=== PATIENT | female | born 1950 | race Caucasian/White ===

== ENCOUNTER → 2016-10-23 | Day surgery (SDC) | payer OTHER, MEDICARE ==
[~2016-10-23] VITALS: Ht 149.9 cm; Wt 95.3 kg
[~2016-10-23] MED LIST: ACIDOPHILUS1 CAP PO; ALLOPURINOL300 MG PO; AMITRIPTYLINE75 MG PO; BACTRIM DS 8001 TAB PO; CIPRO 500MG TA500 MG PO; COLACE100 M1 PO; CYCLOBENZAPRINE10 MG PO; DIFLUCAN200 MG PO; DULOXETINE HCL30 MG PO; FUROSEMIDE40 M1 PO; FUROSEMIDE40 MG PO; GLUCOPHAGE1000 MG PO; HYDROCODONE/ACE1 TA1 PO; LASIX20 MG PO; LASIX40 MG PO; LEADER MELATONIN5 MG PO; LEVOTHYROXIN0.112 MG PO; LEVOTHYROXINE125 MCG PO; METFORMIN HCL1000 M1 PO; NEURONTIN300 MG PO; NEXIUM 40MG40 MG PO; NITROFURANTOIN100 MG PO; NORVASC 5MG TAB5 MG PO; PERCOCET 325 MG1 TA2 PO; SAVELLA25 MG PO; SUPRAX400 M2 PO; VICODIN5-300 PO; VITAMIN B121000 MC2 PO; VITAMIN D31000 IU PO; ZOCOR 40MG TAB40 MG PO
--- NOTE | 2016-10-23 12:32 | Operative Report ---
Operative/Inv Procedure Report Surgery Date: 10/23/16 Name of Procedure: Release right sided carpal tunnel Pre-Operative Diagnosis: carpal Tunnel syndrome Post-Operative Diagnosis: Same Estimated Blood Loss: scant Surgeon/Airframe Design Engineer: GISELLA PATIÑO MD Anesthesia: moderate sedation Operative/Procedure Note Note: Patient was counseled extensively regarding the procedure the alternatives risks and expected outcomes as relates to her request for surgical intervention to treat symptomatically right-sided carpal tunnel syndrome. We talked about his being given or implied in regards to recovery. We talked about the risks which include infection bleeding pain "sensitive scarring of the fingers are numb skin of the palm. Once agreed informed consent was signed. She was brought to the operating room placed supine on the table. Intravenous sedation outpouching of the right hand was prepped and draped in usual sterile fashion. Tourniquet was placed and inflated. A palmar incision was made through the skin subcutaneous tissue and palmar fascia. Transverse carpal ligament was opened and explored under direct vision. No other pathology seen. Wound was irrigated closed and splinted
== END ==
LOC: STS 10-03 07:00
DX: G56.01 Carpal tunnel syndrome, right upper limb (principal); E78.5 Hyperlipidemia, unspecified; I10 Essential (primary) hypertension; E03.9 Hypothyroidism, unspecified; E11.9 Type 2 diabetes mellitus without complications; Z79.84 Long term (current) use of oral hypoglycemic drugs; Z86.14 Personal history of Methicillin resistant Staphylococcus aureus infection
CPT/HCPCS: J2250

== ENCOUNTER 2016-12-07 08:33 | Emergency (ER) | payer OTHER ==
[~2016-12-07 08:33] MED LIST changes: -COLACE100 M1 PO; -METFORMIN HCL1000 M1 PO; -SUPRAX400 M2 PO
--- NOTE | 2016-12-07 08:51 | ED GI/GU/ABDOMINAL COMPLAINT ---
History of Present Illness General Chief Complaint: Abdominal Pain/Flank Pain Stated Complaint: LUMP ON L SIDE AND PAINFUL/FREQUENT URINATION Source: patient, family, old records Exam Limitations: no limitations Vital Signs & Intake/Output Vital Signs & Intake/Output Vital Signs Date Time Temp Pulse Resp B/P B/P Pulse O2 O2 Flow FiO2 Mean Ox Delivery Rate 12/07 0849 97.4 104 22 138/67 98 Room Air Allergies Coded Allergies: Iodinated Contrast Media - Oral and (IODINATED CONTRAST MEDIA - IV DYE) (RASH ) Penicillins (UNKNOWN 09/14/15) Uncoded Allergies: COBAN (Intermediate, RASH 10/20/16) MAURICIO (UNKNOWN 11/05/12) Reconcile Medications Cefixime (Suprax) 400 MG CAPSULE 1 CAP PO DAILY URINE INFECTION Docusate Sodium (Colace) 100 MG CAPSULE 1 CAP PO BID CONSTIPATION Duloxetine HCl 30 MG CAPSULE.DR 1 CAP PO DAILY FIBROMYALGIA (Reported) Furosemide 40 MG TABLET 1.5 TAB PO DAILY EDEMA (Reported) Gabapentin (Neurontin) 300 MG CAP 1 CAP PO TID pain (Reported) HYDROCODONE/ACETAMINOPHEN (Hydrocodon-Acetaminophen 5-325) 5 MG-325 MG TABLET 1 TAB PO AT BEDTIME pain (Reported) Levothyroxine Sodium 125 MCG TABLET 1 TAB PO DAILY HYPOTHYROID (Reported) Melatonin 5 MG TABLET 1 TAB PO QPM SLEEP (Reported) Metformin HCl 1,000 MG TABLET 1 TAB PO BID DM (Reported) Metformin Hydrochloride (Glucophage) 1,000 MG TAB 1 TAB PO BID DIABETES ( Reported) Simvastatin (Zocor 40MG Tab) 40 MG TABLET 1 TAB PO QPM CHOLESTEROL (Reported) Triage Note: PER PT I HAVE AUTI, X 4 DAYS, I AM INCONTINENT AT BASELINE BUT ITS WORSE ALSO LUMP IN MY L SIDE, YOU CAN FEEL IT WHEN I STAND UP. PT HAD AN OUTPT CT THEN CAME TO REGISTER TO BE SEEN Triage Nurses Notes Reviewed? yes ? N Is pt currently ? No HPI: Patient had an outpatient CAT scan performed today to evaluate kidney stones. This was ordered by her urologist. After the CAT scan the patient decides check into the emergency department for a lump that she has had on the left side for the past week. She has noticed a lump to be there constantly. There are no aggravating or mitigating factors. She describes a pressure sensation around the lump. There is no radiation. She rates it as a 5 out of 10. Patient also states she has been constipated for the past 5 days. There is no nausea or vomiting. Patient decided to get both of those evaluated. She is also complaining of urinary frequency and dysuria. The symptoms have been going on for the past 2 days. No fevers or chills. Similar symptoms multiple times in the past when she's had urinary tract infections. Past History Travel History Traveled to [place] past 21 day No Medical History Any Pertinent Medical History? 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 Hepatic: NONE Renal: nephrolithiasis, bladder tumor s/p resection Musculoskeletal: fibromyalgia, gout, osteoarthritis, osteoporosis Psychiatric: NONE Endocrine: diabetes, hyperparathyroidism, hypothyroidism, obesity, W/ RESECTION Blood Disorders: NONE Cancer(s): basal cell carcinoma, melanoma DRUPAL WEB DEVELOPER/Reproductive: NONE Other Medical Hx: Fibromyalgia History of MRSA: Yes History of VRE: No History of CDIFF: No Surgical History Surgical History: 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 No Review of Systems Review of Systems Constitutional: Reports: no symptoms. EENTM: Reports: no symptoms. Respiratory: Reports: no symptoms. Cardiovascular: Reports: no symptoms. GI: Reports: see HPI, abdominal pain, constipation. Genitourinary: Reports: no symptoms. Musculoskeletal: Reports: no symptoms. Skin: Reports: no symptoms. Neurological/Psychological: Reports: no symptoms. Hematologic/Endocrine: Reports: no symptoms. Immunologic/Allergic: Reports: no symptoms. All Other Systems: Reviewed and Negative Physical Exam Physical Exam General Appearance: well developed/nourished, alert, awake Head: atraumatic, normal appearance Eyes: Bilateral: PERRL, EOMI. Ears, Nose, Throat, Mouth: hearing grossly normal, moist mucous membrane Neck: normal inspection, supple, full range of motion Respiratory: normal breath sounds, chest non-tender, no respiratory distress, lungs clear Cardiovascular: regular rate/rhythm, normal peripheral pulses Gastrointestinal: normal bowel sounds, soft, non-tender, no organomegaly Back: normal inspection, normal range of motion Extremities: normal range of motion Neurologic/Psych: no motor/sensory deficits, awake, alert, oriented x 3, normal mood/affect Skin: intact, normal color, warm/dry Core Measures ACS in differential dx? No Severe Sepsis Present: No Septic Shock Present: No Progress Differential Diagnosis: bowel obstruction, hernia, ischemic bowel, inflamm bowel dis, kidney stone, SBO, UTI/pyelo Plan of Care: Orders Procedure Date/time Status Add-on Test (ER Only) 12/07 1032 Active Straight Cath 12/07 0850 Active URINALYSIS 12/07 0850 Complete LIPASE 12/07 0850 Complete COMPREHENSIVE METABOLIC PANEL 12/07 0850 Complete CBC WITHOUT DIFFERENTIAL 12/07 0850 Complete AMYLASE 12/07 0850 Complete Laboratory Tests 12/07/16 0945: Anion Gap 16, Estimated GFR 55 L, BUN/Creatinine Ratio 28.0 H, Glucose 162 H, Calcium 8.9, Total Bilirubin 0.3, AST 21, ALT 27, Alkaline Phosphatase 47, Total Protein 6.6, Albumin 3.7, Globulin 2.9, Albumin/Globulin Ratio 1.3, Amylase 43, Lipase 39, CBC w Diff NO MAN DIFF REQ, RBC 2.80 L, MCV 102.9 H, MCH 33.6 H, RDW 16.0 H, MPV 9.0, Gran % 72.3, Lymphocytes % 18.7 L, Monocytes % 7.0, Eosinophils % 1.6, Basophils % 0.4, Absolute Granulocytes 5.0, Absolute Lymphocytes 1.3, Absolute Monocytes 0.5, Absolute Eosinophils 0.1, Absolute Basophils 0, PUBS MCHC 32.6 L 12/07/16 0900: Urinalysis LIGHT H, Urine Color YEL, Urine Clarity HAZY H, Urine pH 6.0, Ur Specific [place] 1.010, Urine Protein 30 H, Urine Ketones NEG, Urine Nitrite POS H, Urine Bilirubin NEG, Urine Urobilinogen 0.2, Ur Leukocyte Esterase LARGE H, Ur Microscopic SEDIMENT EXAMINED, Urine RBC 10-15 H, Urine WBC > 75 H, Ur Epithelial Cells MOD H, Urine Bacteria MANY H, Urine Hemoglobin LARGE H, Urine Glucose NEG Diagnostic Imaging: Viewed by Me: CT Scan. Discussed w/RAD: CT Scan. Radiology Impression: PATIENT: JEWELS GHOTRA PRESENT AGE: 66 PATIENT ACCOUNT NO: [id number] : 49 LOCATION: [facility] ORDERING PHYSICIAN: ANSON BURTON MD SERVICE DATE: 12/07/16- EXAM TYPE: CAT - CT ABD & PELVIS W/O IV CONTRAS EXAMINATION: CT ABDOMEN AND PELVIS WITHOUT CONTRAST CLINICAL INFORMATION: History of kidney stones. COMPARISON: CT abdomen and pelvis dated 09/09/2015. TECHNIQUE: Multidetector volumetric imaging was performed from the superior aspect of the liver through the pubic symphysis. Sagittal and coronal reformatted images were obtained on the technologist's workstation. DLP: 1159.16 mGy-cm FINDINGS: LUNG BASES: The visualized lung bases are unremarkable. LIVER, GALLBLADDER, AND BILIARY TREE: The liver is normal in size, shape, and attenuation. No focal hepatic lesion or biliary ductal dilatation is present. Small layering gallstones are noted, without gallbladder wall thickening or obvious pericholecystic inflammatory change. PANCREAS: There is diffuse fatty infiltration. SPLEEN: Unremarkable. ADRENAL GLANDS: Unremarkable. KIDNEYS AND URETERS: There are approximately 5 nonobstructing right renal calculi and 2 nonobstructing left renal calculi. The largest on the right is at the lower pole, measuring 10 mm. The largest on the left is at the lower pole, measuring 9 mm. There is no significant hydronephrosis bilaterally. No definite ureteric calculi are seen, with evaluation limited by beam hardening artifact from hip arthroplasties. There are stable right gonadal vein phleboliths, unchanged prior examinations including 07/05/2015. The bilateral kidneys appear somewhat atrophic, particularly the left. There are multiple low- attenuation right renal upper and lower pole cysts redemonstrated, which may be more fully evaluated with ultrasound, if clinically indicated. BLADDER: Decompressed and largely obscured by pelvic beam hardening artifact. GASTROINTESTINAL TRACT: There is mild diverticulosis, without acute diverticulitis. There is stool distributed throughout nondistended colon, suggesting possible constipation. No bowel obstruction, free intraperitoneal air or abscess is seen. There have been prior bowel resections; please correlate with patient's past surgical history. ABDOMINAL WALL: There has been a prior ventral herniorrhaphy, with mesh noted. There is a persistent lateral left abdominal wall fat-containing hernia with neck measuring 3.1 cm. There is moderate dermal thickening and subcutaneous fat stranding of the infraumbilical anterior abdominal wall. LYMPH NODES: There are stable subcentimeter retroperitoneal and bilateral inguinal lymph nodes. No sizable lymphadenopathy is seen. VASCULAR: There is moderate aortoiliac atherosclerotic change. No abdominal aortic aneurysm is seen. PELVIC VISCERA: Poorly identified secondary to beam hardening artifact. OSSEOUS STRUCTURES: There is multi-level marked thoracolumbar spondylosis. There is degenerative disc disease with vacuum phenomenon at T12-L1, and extending from L3-L4 through L5-S1. Bilateral hip arthroplasties are noted. IMPRESSION: 1. Nonobstructing bilateral renal calculi are redemonstrated. No definite ureteric calculus is seen bilaterally, and there is no hydronephrosis. Again, evaluation of the distal ureters is significantly limited by beam hardening artifact from total hip arthroplasties. 2. There is mild diverticulosis, without acute diverticulitis. 3. There have been prior bowel resections. Please correlate with the patient's past surgical history. No bowel obstruction, free intraperitoneal air or abscess is seen. 4. There is cholelithiasis, without cholecystitis or choledocholithiasis seen. 5. There are stable changes consistent with a prior ventral herniorrhaphy. There is adjacent anterior abdominal wall subcutaneous fat stranding and dermal thickening, for which clinical correlation is recommended. A persistent left lateral abdominal wall fat-containing hernia defect is seen. 6. There are thoracolumbar degenerative changes. DICTATED BY: GISELLA MARTINEZ MD DATE/TIME DICTATED:12/07/16917 SURVEILLANCE SENSOR OFFICER:TIFFANY DATE/TIME TRANSCRIBED:12/07/16917 CONFIDENTIAL, DO NOT COPY WITHOUT APPROPRIATE AUTHORIZATION. <Electronically signed in Other Vendor System> SIGNED BY: GISELLA MARTINEZ MD 12/07/16 9320 Initial ED EKG: none Departure Departure Disposition: HOME OR SELF CARE Condition: Stable Clinical Impression Primary Impression: UTI (urinary tract infection) Qualifiers: Urinary tract infection type: site unspecified Hematuria presence: without hematuria Qualified Code: N39.0 - Urinary tract infection, site not specified Secondary Impressions: Constipation Qualifiers: Constipation type: unspecified constipation type Qualified Code: K59.00 - Constipation, unspecified Hernia Referrals: CAMILO CUI,ILIANA Grady (PCP/Family) Additional Instructions: DRINK PLENTY OF FLUIDS RETURN FOR ANY CONCENRS Departure Forms: Customer Survey General Discharge Information Prescriptions: Current Visit Scripts Cefixime (Suprax) 1 CAP PO DAILY #10 CAP Docusate Sodium (Colace) 1 CAP PO BID #60 CAP
[2016-12-07] MEDS ORDERED: SUPRAX400 M2 PO ×2 (09:10→10:35)
[2016-12-07] MEDS ORDERED: METFORMIN HCL1000 M1 PO (09:10)
[2016-12-07 10:15] LABS: ABSOLUTE BASOPHIL COUNT 0 /CUMM (0.0-0.2); ABSOLUTE EOSINOPHIL COUNT 0.1 /CUMM (0.0-0.7); ABSOLUTE LYMPH COUNT 1.3 /CUMM (1.2-3.4); ABSOLUTE MONOCYTE COUNT 0.5 /CUMM (0.10-0.60); BASOPHIL % 0.4 % (0.0-2.0); EOSINOPHIL % 1.6 % (0-5); GRANULOCYTE % 72.3 % (42.2-75.2); HEMATOCRIT 28.8 % (37-47); MEAN CORPUSCULAR HGB 33.6 PG (27.0-31.0); MEAN CORPUSCULAR HGB CONC 32.6 G/DL (33.0-37.0); MEAN CORPUSCULAR VOLUME 102.9 FL (81.0-99.0); PLATELET COUNT 295 /CUMM (130-400); WHITE BLOOD CELL COUNT 6.9 /CUMM (4.8-10.8)
[2016-12-07 10:35] VITALS: BP 144/69
[2016-12-07] MEDS ORDERED: COLACE100 M1 PO (10:35)
== END 2016-12-07 10:47 ==
LOC: ERH 08:33
PROVIDERS: Emergency Medicine
DX: N39.0 Urinary tract infection, site not specified (principal); K59.00 Constipation, unspecified; K43.9 Ventral hernia without obstruction or gangrene
CPT/HCPCS: 81001; 87086; 96360

== ENCOUNTER 2017-02-13 12:05 | Emergency (ER) | payer OTHER ==
[~2017-02-13] VITALS: Ht 149.9 cm; Wt 95.3 kg
[~2017-02-13 12:05] MED LIST changes: +COLACE100 M1 PO; +METFORMIN HCL1000 M1 PO; +NITROFURANTOIN100 M5 PO; +SUPRAX400 M2 PO
--- NOTE | 2017-02-13 12:26 | ED GENERAL ADULT ---
History of Present Illness General Chief Complaint: Female Urogenital Problems Stated Complaint: FEMALE PROBLEMS Source: patient Exam Limitations: no limitations Vital Signs & Intake/Output Vital Signs & Intake/Output Vital Signs Date Time Temp Pulse Resp B/P B/P Pulse O2 O2 Flow FiO2 Mean Ox Delivery Rate 02/13 1404 97.9 80 18 139/77 98 Room Air 02/13 1212 96.7 98 20 144/78 97 Room Air Room Air Allergies Coded Allergies: Iodinated Contrast- Oral and IV Dye (IODINATED CONTRAST MEDIA - IV DYE) (RASH ) Penicillins (UNKNOWN 09/14/15) Uncoded Allergies: COBAN (Intermediate, RASH 10/20/16) MAURICIO (UNKNOWN 11/05/12) Triage Note: PT TO ED WITH C/O "I HAVE A UTI AND A NASTY YEAST INFECTION". C/O BURNING AND FREQUENCY X 3-4 DAYS. Triage Nurses Notes Reviewed? yes HPI: 66-year-old female with a history of hypertension, hyperlipidemia, hypothyroid, hyperparathyroid, diabetes, colorectal cancer, basal cell carcinoma, bladder tumor, fibromyalgia presenting with dysuria, urinary frequency/urgency, foul smelling cloudy urine 1 week. Denies fevers, nausea, vomiting, hematuria, flank pain. Patient also reports that she thinks she may have yeast infection, but denies vaginal discharge or itching. (ANGELITO FONTENOT,KATY) Reconcile Medications Cephalexin (Keflex) 500 MG CAPSULE 1 CAP PO 4 TIMES/DAY UTI Clotrimazole 1 % CREAM..G. 1 EAMON TOP BID labial yeast apply to affected area(s) Docusate Sodium (Colace) 100 MG CAPSULE 1 CAP PO BID CONSTIPATION Duloxetine HCl 30 MG CAPSULE.DR 1 CAP PO DAILY FIBROMYALGIA (Reported) Furosemide 40 MG TABLET 1.5 TAB PO DAILY EDEMA (Reported) Gabapentin (Neurontin) 300 MG CAP 1 CAP PO TID pain (Reported) HYDROCODONE/ACETAMINOPHEN (Hydrocodon-Acetaminophen 5-325) 5 MG-325 MG TABLET 1 TAB PO AT BEDTIME pain (Reported) Levothyroxine Sodium 125 MCG TABLET 1 TAB PO DAILY HYPOTHYROID (Reported) Melatonin 5 MG TABLET 1 TAB PO QPM SLEEP (Reported) Metformin HCl 1,000 MG TABLET 1 TAB PO BID DM (Reported) Nitrofurantoin Macrocrystal (Nitrofurantoin) 100 MG CAPSULE 1 CAP PO BID UTI (Reported) Simvastatin (Zocor 40MG Tab) 40 MG TABLET 1 TAB PO QPM CHOLESTEROL (Reported) (SINA CUI,YOLANDA) Past History Travel History Traveled to [place] past 21 day No Medical History Any Pertinent Medical History? 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 Hepatic: NONE Renal: nephrolithiasis, bladder tumor s/p resection Musculoskeletal: fibromyalgia, gout, osteoarthritis, osteoporosis Psychiatric: NONE Endocrine: diabetes, hyperparathyroidism, hypothyroidism, obesity, W/ RESECTION Blood Disorders: NONE Cancer(s): basal cell carcinoma, melanoma MACHINE MAINTENANCE/Reproductive: NONE Other Medical Hx: Fibromyalgia History of MRSA: Yes History of VRE: No History of CDIFF: No Surgical History Surgical History: 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 No (KATY EATON PA-C) Review of Systems Review of Systems Constitutional: Reports: no symptoms. EENTM: Reports: no symptoms. Respiratory: Reports: no symptoms. Cardiovascular: Reports: no symptoms. GI: Reports: no symptoms. Genitourinary: Reports: dysuria, frequency, urgency. Denies: discharge, hematuria. Musculoskeletal: Reports: no symptoms. Skin: Reports: no symptoms. Neurological/Psychological: Reports: no symptoms. Hematologic/Endocrine: Reports: no symptoms. Immunologic/Allergic: Reports: no symptoms. (KATY EATON PA-C) Physical Exam Physical Exam General Appearance: well developed/nourished, no apparent distress, alert, awake , comfortable Head: atraumatic Eyes: Bilateral: normal appearance. Neck: normal inspection Respiratory: normal breath sounds, lungs clear Cardiovascular: regular rate/rhythm, normal peripheral pulses Gastrointestinal: soft, non-tender Back: no CVA tenderness Neurologic/Psych: awake, alert, oriented x 3, normal gait, normal mood/affect Skin: intact, normal color, warm/dry Comments: On pelvic exam there is no vaginal discharge or lesions within the vaginal canal , no cervical motion tenderness, no adnexal masses or tenderness to palpation. There are scattered areas of white scaling to the external labia. Core Measures ACS in differential dx? No CVA/TIA Diagnosis: No Severe Sepsis Present: No Septic Shock Present: No (ANGELITO FONTENOT,KATY) Progress Differential Diagnoses I considered the following diagnoses in my evaluation of the patient: [UTI versus pyelonephritis versus yeast infection] Plan of Care: Orders Procedure Date/time Status CULTURE,URINE 02/13 1217 Active URINALYSIS 02/13 1217 Complete Laboratory Tests 02/13/17 1220: Urine Color YEL, Urine Clarity HAZY H, Urine pH 6.0, Ur Specific [place] 1.015, Urine Protein 30 H, Urine Ketones NEG, Urine Nitrite POS H, Urine Bilirubin NEG, Urine Urobilinogen 0.2, Ur Leukocyte Esterase MOD H, Ur Microscopic SEDIMENT EXAMINED, Urine RBC 5-10 H, Urine WBC > 75 H, Ur Epithelial Cells MOD H, Urine Bacteria MANY H, Urine Hemoglobin MOD H, Urine Glucose NEG Microbiology 02/13 1220 URINE ROUT: Urine Culture - RECD UA consistent with UTI, patient has no signs or symptoms of pyelonephritis. Will treat with Keflex. Signs of yeast infection within the vaginal canal, however show signs of fungal infection to the external labia. No indication for fluconazole at this time, but will give topical clotrimazole. (ANGELITO FONTENOT,KATY) Initial ED EKG: none (ANGELITO FONTENOT,KATY) Departure Departure Disposition: HOME OR SELF CARE Condition: Stable Clinical Impression Primary Impression: UTI (urinary tract infection) Secondary Impressions: Candidal skin infection Referrals: CAMILO CUI,ILIANA Grady (PCP/Family) Additional Instructions: Take 500 mg of Keflex 4 times a day for 7 days. Apply clotrimazole topically to the external vagina twice a day. Follow-up with your primary care provider for reevaluation. Return to ER for any normal worsening symptoms. Departure Forms: Customer Survey General Discharge Information (ANGELITO FONTENOT,KATY) Departure Prescriptions: Current Visit Scripts Cephalexin (Keflex) 1 CAP PO 4 TIMES/DAY 7 Days Clotrimazole 1 EAMON TOP BID #30 GM apply to affected area(s) PA/GLASS LINED TANK REPAIRER Co-Sign Statement Statement: ED Attending supervision documentation- [X] I saw and evaluated the patient. I have also reviewed all the pertinent lab results and diagnostic results. I agree with the findings and the plan of care as documented in the PA's/GLASS LINED TANK REPAIRER's documentation. [X] I have reviewed the ED Record and agree with the PA's/GLASS LINED TANK REPAIRER's documentation. [] Additions or exceptions (if any) to the PAs/GLASS LINED TANK REPAIRER's note and plan are summarized below: [] (SINA CUI,YOLANDA) Critical Care Note Critical Care Note Critical Care Time: non-applicable (ANGELITO FONTENOT,KATY)
[2017-02-13] MEDS ORDERED: KEFLEX500 M1 PO (13:47)
[2017-02-13] MEDS ORDERED: CLOTRIMAZOLE15 GM TOP (13:47)
[2017-02-13 14:04] VITALS: BP 139/77
== END 2017-02-13 14:05 ==
LOC: ERH 12:05
DX: N39.0 Urinary tract infection, site not specified (principal); B37.2 Candidiasis of skin and nail
CPT/HCPCS: 81001; 87086

== ENCOUNTER 2017-07-18 19:01 | Inpatient (IN) | payer OTHER ==
[~2017-07-18] VITALS: Ht 149.9 cm; Wt 95.3 kg
[~2017-07-18 19:01] MED LIST changes: +ALLOPURINOL300 M1 PO; +AMITRIPTYLINE H75 M2 PO; +CIPRO500 M1 PO; +CLOTRIMAZOLE15 GM TOP; +CYCLOBENZAPRINE10 M1 PO; +DIFLUCAN150 M1 PO; -DULOXETINE HCL30 MG PO; +DULOXETINE HCL60 MG PO; +GABAPENTIN300 M2 PO; +HYDROCODON-ACE1 EAC2 PO; +KEFLEX500 M1 PO; -LEADER MELATONIN5 MG PO; +MELATONIN3 M4 PO; +MYRBETRIQ25 M1 PO; +NEURONTIN300 M1 PO; -NEURONTIN300 MG PO; +OXYBUTYNIN CHLO15 M1 PO; +PROBIOTIC1 EACH PO; +VITAMIN B-121000 MC3 PO; +VITAMIN D31000 UNI2 PO; -ZOCOR 40MG TAB40 MG PO; +ZOCOR40 M1 PO
--- NOTE | 2017-07-18 19:09 | ED AMS/SEIZURE/WEAK/DIZZY ---
History of Present Illness General Chief Complaint: Altered Mental Status Stated Complaint: BIBA FOR AMS Source: patient Exam Limitations: no limitations Vital Signs & Intake/Output Vital Signs & Intake/Output Vital Signs Date Time Temp Pulse Resp B/P B/P Pulse O2 O2 Flow FiO2 Mean Ox Delivery Rate 07/18 2207 100.1 102 18 133/70 98 Room Air 07/18 2121 101.0 07/18 2006 102.0 07/18 2005 102.0 07/18 1918 96 Nasal Cannula 07/18 1909 101.4 113 18 167/72 96 Nasal 4.0L Cannula Allergies Coded Allergies: Penicillins (Intermediate, HIVE 06/01/17) Iodinated Contrast- Oral and IV Dye (IODINATED CONTRAST MEDIA - IV DYE) (RASH ) Uncoded Allergies: COBAN (Intermediate, RASH 10/20/16) MAURICIO (Intermediate, HIVES 06/01/17) Reconcile Medications Allopurinol 300 MG TABLET 1 TAB PO DAILY GOUT (Reported) Amitriptyline HCl 75 MG TABLET 1 TAB PO QPM UNKNOWN (Reported) Cholecalciferol (Vitamin D3) 1,000 UNIT TABLET 1 TAB PO DAILY VITAMIN SUPPORT (Reported) Ciprofloxacin HCl (Cipro) 500 MG TABLET 1 TAB PO BID INFECTION Cyanocobalamin (Vitamin B-12) 1,000 MCG TABLET 1 TAB PO DAILY VITAMIN SUPPORT (Reported) Docusate Sodium (Colace) 100 MG CAPSULE 1 CAP PO BID CONSTIPATION Duloxetine HCl 60 MG CAPSULE.DR 1 CAP PO DAILY FIBROMYALGIA (Reported) Fluconazole (Diflucan) 150 MG TABLET 1 TAB PO ONCE YEAST Furosemide 40 MG TABLET 1 TAB PO BID EDEMA (Reported) Gabapentin (Neurontin) 300 MG CAPSULE 2 CAP PO BID PAIN (Reported) Gabapentin 300 MG CAPSULE 1 CAP PO 1200 PAIN (Reported) Hydrocodone/Acetaminophen (Hydrocodon-Acetaminophen 5-325) 5 MG-325 MG TABLET 1 TAB PO BIDP PRN PAIN (Reported) Levothyroxine Sodium 125 MCG TABLET 1 TAB PO DAILY AC THYROID (Reported) Melatonin 3 MG TABLET 1 TAB PO QPM SLEEP (Reported) Metformin HCl 1,000 MG TABLET 1 TAB PO BID DM (Reported) Oxybutynin Chloride (Oxybutynin Chloride ER) 15 MG TAB.ER.24 1 TAB PO AD PRN BLADDER (Reported) Simvastatin (Zocor*) 40 MG TABLET 1 TAB PO QPM CHOLESTEROL (Reported) Triage Nurses Notes Reviewed? yes Onset: Gradual Duration: day(s):, waxing and waning Timing: recent history Injury Environment: home Severity: moderate Modifying Factors: Improves With: rest. Associated Symptoms: fever HPI: 66 yo woman presents with weakness and fever for 2 days. Per her , she just began her second course of cipro for a uti. She has also had diflucan several times for a perineal yeast infection. Per her , "Tonight, she had a really bad fever... she was shaking and delerious... I had to call 911." She notes decreased oral intake, no abdominal pain, diarrhea, vomiting, chest pain, dyspnea, cough. She is otherwise well. Past History Travel History Traveled to [place] past 21 day No Medical History Any Pertinent Medical History? 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 Hepatic: NONE Renal: nephrolithiasis, bladder tumor s/p resection Musculoskeletal: fibromyalgia, gout, osteoarthritis, osteoporosis Psychiatric: NONE Endocrine: diabetes, hyperparathyroidism, hypothyroidism, obesity, W/ RESECTION Blood Disorders: NONE Cancer(s): basal cell carcinoma, melanoma 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 Other Medical Hx: Fibromyalgia History of MRSA: Yes History of VRE: No History of CDIFF: No Surgical History Surgical History: colon resection (right hemicolectomy 12 yrs [employer]), hernia repair-ventral, hip replacement, renal stent s/p TURBT 2 yrs [employer] s/p parathyroidectomy Psychosocial History Who do you live with Spouse Services at Home None What is your primary language Kyrgyz Tobacco Use: Never used Family History Family History, If Any: MOTHER FH: breast cancer FH: thyroid cancer BROTHER FH: colon cancer SISTER FH: breast cancer FH: diabetes mellitus FH: HTN (hypertension) FH: thyroid cancer Relation not specified for: FH: brain cancer Hx Contributory? No Review of Systems Review of Systems Constitutional: Reports: no symptoms. EENTM: Reports: no symptoms. Respiratory: Reports: no symptoms. Cardiovascular: Reports: no symptoms. GI: Reports: no symptoms. Genitourinary: Reports: no symptoms. Musculoskeletal: Reports: no symptoms. Skin: Reports: no symptoms. Neurological/Psychological: Reports: no symptoms. Hematologic/Endocrine: Reports: no symptoms. Immunologic/Allergic: Reports: no symptoms. All Other Systems: Reviewed and Negative Physical Exam Physical Exam General Appearance: well developed/nourished, mild distress Head: atraumatic, normal appearance Eyes: Bilateral: normal appearance, PERRL, EOMI. Ears, Nose, Throat: normal pharynx, dry mucosa, otherwise benign Neck: normal inspection, supple, full range of motion Respiratory: normal breath sounds, chest non-tender, no respiratory distress, quiet respiration, lungs clear Cardiovascular: regular rate/rhythm Gastrointestinal: large abdominal wall hernia, non tender Back: normal inspection, normal range of motion Extremities: normal range of motion Neurologic/Psych: no motor/sensory deficits, awake, alert, oriented x 3 Skin: intact, normal color, warm/dry Core Measures ACS in differential dx? No CVA/TIA Diagnosis No Sepsis Present: Yes Sepsis Focused Exam Completed? Yes Progress Differential Diagnosis: sepsis, uti, renal failure vs other. Plan of Care: Orders Procedure Date/time Status Heart Healthy Diet 07/19 B Active Patient Data 07/18 2209 Active Saline Lock 07/18 2208 Active Misc Message 07/18 2208 Active ED Holding Orders 07/18 2208 Active Admit to inpatient 07/18 2208 Active Vital Signs 07/18 2208 Active Code Status 07/18 2208 Active Add-on Test (ER Only) 07/18 2108 Active URINALYSIS 07/18 1928 Complete BLOOD CULTURE 07/18 1925 Active RAPID VIRAL INFLUENZA A 07/18 1923 Complete CULTURE,URINE 07/18 1923 Active BLOOD CULTURE 07/18 1923 Active TROPONIN LEVEL 07/18 1909 Complete LIPASE 07/18 1909 Complete HEPATIC FUNCTION PANEL 07/18 1909 Complete ETHANOL 07/18 1909 Complete CBC WITHOUT DIFFERENTIAL 07/18 1909 Complete BASIC METABOLIC PANEL 07/18 1909 Complete AMYLASE 07/18 1909 Complete EKG 07/18 1909 Active Current Medications Sig/Elizabeth Start time Last Medication Dose Stop Time Status Admin Vancomycin HCl 1,000 MG ONCE ONE 07/18 2215 AC Dextrose/Water 250 ML 07/18 2314 (D5W) Laboratory Tests 07/18/171927: Anion Gap 13, Estimated GFR 45 L, BUN/Creatinine Ratio 34.2 H, Glucose 130 H, Calcium 9.3, Total Bilirubin 0.5, Direct Bilirubin 0.5 H, AST 30, ALT 19, Alkaline Phosphatase 40, Troponin I 0.02, Total Protein 6.7, Albumin 3.7, Amylase 37, Lipase 59, CBC w Diff NO MAN DIFF REQ, RBC 2.71 L, MCV 102.5 H, MCH 33.0 H, RDW 16.0 H, MPV 8.7, Gran % 80.0 H, Lymphocytes % 11.8 L, Monocytes % 7.3, Eosinophils % 0.6, Basophils % 0.3, Absolute Granulocytes 5.0, Absolute Lymphocytes 0.7 L, Absolute Monocytes 0.5, Absolute Eosinophils 0, Absolute Basophils 0, PUBS MCHC 32.2 L, Serum Alcohol < 10.0, Urine Color YEL, Urine Clarity CLDY H, Urine pH 6.5, Ur Specific Dolph 1.015, Urine Protein 100 H, Urine Ketones NEG, Urine Nitrite NEG, Urine Bilirubin NEG, Urine Urobilinogen 0.2, Ur Leukocyte Esterase LARGE H, Ur Microscopic SEDIMENT EXAMINED, Urine RBC >75 H, Urine WBC PACKD H, Ur Epithelial Cells MANY H, Urine Hemoglobin LARGE H, Urine Glucose NEG Microbiology 07/18 2118 BLOOD: Blood Culture - RECD 07/18 2025 BLOOD: Blood Culture - RECD 07/18 1938 NASOPHARYN: Influenza Virus A & B Rapid Smear - COMP 07/18 1928 URINE ROUT: Urine Culture - RECD Diagnostic Imaging: Viewed by Me: Radiology Read. Discussed w/RAD: Radiology Read. CXR Impression: no acute abnormality, no infiltrates, normal size heart, normal mediastinum, PATIENT: JEWELS GHOTRA PRESENT AGE: 66 PATIENT ACCOUNT NO: [id number] : 49 LOCATION: [facility] ORDERING PHYSICIAN: Richy Colon MD SERVICE DATE: 07/18/17 EXAM TYPE: RAD - XRY- PORTABLE CHEST XRAY EXAMINATION: XR PORTABLE CHEST CLINICAL INFORMATION: Transient hypoxia. COMPARISON: Chest 10/18/2016. TECHNIQUE: Portable frontal view of the chest was obtained. FINDINGS: There is cardiomegaly with normal pulmonary vascularity. The lungs are expanded and clear. No gross bony abnormality seen. IMPRESSION: Cardiomegaly. No gross bony abnormality seen. The soft tissues are normal. DICTATED BY: Chiara CUI,Rey DATE/TIME DICTATED:2134 MOUNTER CLARINETS:TIFFANY DATE/TIME TRANSCRIBED:07/18/172134 CONFIDENTIAL, DO NOT COPY WITHOUT APPROPRIATE AUTHORIZATION. <Electronically signed in Other Vendor System> SIGNED BY: Chiara CUI,Rey 07/18/172142 Initial ED EKG: sinus tach, incomplete lbbb, unchanged from prior. Departure Departure Disposition: STILL A PATIENT Condition: Stable Clinical Impression Primary Impression: UTI (urinary tract infection) Secondary Impressions: ARF (acute renal failure), Sepsis Referrals: Norberto CUI,Maurisio Grady (PCP/Family) Departure Forms: Customer Survey General Discharge Information Admission Note Spoke With: Quita Herrera MD Documentation of Exam: Documentation of any treatments & extenuating circumstances including Concerns Regarding Discharge (functional status, medication knowledge or non-compliance, living conditions, etc.) that warrant an admission rather than observation: pt with uti, elevated bun/cr ratio, fever on her second course of cipro for uti.... upon review of record, pt has cipro resistant e.coli from 07/03... also with history of vre... pt merits iv abx, iv fluids, supportive care. Critical Care Note Critical Care Note Critical Care Time: 30-74 min
[2017-07-18 19:40] LABS: ABSOLUTE BASOPHIL COUNT 0 /CUMM (0.0-0.2); ABSOLUTE EOSINOPHIL COUNT 0 /CUMM (0.0-0.7); ABSOLUTE LYMPH COUNT 0.7 /CUMM (1.2-3.4); ABSOLUTE MONOCYTE COUNT 0.5 /CUMM (0.10-0.60); BASOPHIL % 0.3 % (0.0-2.0); EOSINOPHIL % 0.6 % (0-5); HEMATOCRIT 27.7 % (37-47); MEAN CORPUSCULAR HGB CONC 32.2 G/DL (33.0-37.0); MEAN CORPUSCULAR VOLUME 102.5 FL (81.0-99.0); MEAN PLATELET VOLUME 8.7 FL (7.4-10.4); PLATELET COUNT 311 /CUMM (130-400); RED BLOOD CELL CT 2.71 /CUMM (4.20-5.40); WHITE BLOOD CELL COUNT 6.2 /CUMM (4.8-10.8)
--- NOTE | 2017-07-18 21:43 | RADIOLOGY REPORT ---
EXAMINATION: XR PORTABLE CHEST CLINICAL INFORMATION: Transient hypoxia. COMPARISON: Chest 10/18/2016. TECHNIQUE: Portable frontal view of the chest was obtained. FINDINGS: There is cardiomegaly with normal pulmonary vascularity. The lungs are expanded and clear. No gross bony abnormality seen. IMPRESSION: Cardiomegaly. No gross bony abnormality seen. The soft tissues are normal.
--- NOTE | 2017-07-18 22:29 | History & Physical ---
Jyothi CUI,[facility] 07/18/17 2229: General Information and HPI MD Statement: I have seen and personally examined JEWELS GHOTRA and documented this H&P. The patient is a 66 year old F who presented with a patient stated chief complaint of [altered mental status]. Source of Information: family Exam Limitations: clinical condition History of Present Illness: This is a 66-year-old female with past medical history of gout, depression, fibromyalgia, hypothyroidism, diabetes mellitus, heart hyperlipidemia, colorectal cancer status post right hemicolectomy, abdominal hernia repair 8, small bowel obstruction, GI bleed him a bilateral renal calculi status post stent, bladder tumor status post resection, osteoarthritis, hyperparathyroidism, basal cell carcinoma, melanoma was brought in by her with altered mental status since today morning. Collateral information obtained from her over phone. Apparently patient was in usual state of health following which she started developing fever with chills, weakness. She started having altered mental status since morning. 2 days ago [address] Dr East with symptoms of fever and chills who apparently suggested Cipro and Diflucan but with no improvement. Patient also has a home temperature recording of 104.3. There is no history of any recent instrumentation. Patient endorses increased frequency of micturition with no dysuria/hematuria/back pain/abdominal pain. He denies chest pain, chest pressure, loss of consciousness, dizziness, lightheadedness. Off note Patient was admitted with urinary tract infection in 2016 was found to have Pseudomonas and treated with Cipro. Allergies/Medications Allergies: Coded Allergies: Penicillins (Intermediate, HIVE 06/01/17) Iodinated Contrast- Oral and IV Dye (IODINATED CONTRAST MEDIA - IV DYE) (RASH ) Uncoded Allergies: COBAN (Intermediate, RASH 10/20/16) MAURICIO (Intermediate, HIVES 06/01/17) Home Med list Allopurinol 300 MG TABLET 1 TAB PO DAILY GOUT (Reported) Amitriptyline HCl 75 MG TABLET 1 TAB PO QPM UNKNOWN (Reported) Cholecalciferol (Vitamin D3) 1,000 UNIT TABLET 1 TAB PO DAILY VITAMIN SUPPORT (Reported) Ciprofloxacin HCl (Cipro) 500 MG TABLET 1 TAB PO BID INFECTION Cyanocobalamin (Vitamin B-12) 1,000 MCG TABLET 1 TAB PO DAILY VITAMIN SUPPORT (Reported) Docusate Sodium (Colace) 100 MG CAPSULE 1 CAP PO BID CONSTIPATION Duloxetine HCl 60 MG CAPSULE.DR 1 CAP PO DAILY FIBROMYALGIA (Reported) Fluconazole (Diflucan) 150 MG TABLET 1 TAB PO ONCE YEAST Furosemide 40 MG TABLET 1 TAB PO BID EDEMA (Reported) Gabapentin (Neurontin) 300 MG CAPSULE 2 CAP PO BID PAIN (Reported) Gabapentin 300 MG CAPSULE 1 CAP PO 1200 PAIN (Reported) Hydrocodone/Acetaminophen (Hydrocodon-Acetaminophen 5-325) 5 MG-325 MG TABLET 1 TAB PO BIDP PRN PAIN (Reported) Levothyroxine Sodium 125 MCG TABLET 1 TAB PO DAILY AC THYROID (Reported) Melatonin 3 MG TABLET 1 TAB PO QPM SLEEP (Reported) Metformin HCl 1,000 MG TABLET 1 TAB PO BID DM (Reported) Oxybutynin Chloride (Oxybutynin Chloride ER) 15 MG TAB.ER.24 1 TAB PO AD PRN BLADDER (Reported) Simvastatin (Zocor*) 40 MG TABLET 1 TAB PO QPM CHOLESTEROL (Reported) Compliance With Home Meds: GOOD Past History Travel History Traveled to [place] past 21 day No Medical History Neurological: NONE EENT: NONE Cardiovascular: hypertension, hyperlipidemia Respiratory: NONE Gastrointestinal: GERD, colorectal cancer s/p R hemicolectomy, multiple abdominal hernias s/p repair (8x), SBO secondary to adhesions, gastric outlet obstruction, GI bleed, hemorrhoids GASTRIC OUTLET OBSTRUCTIO Hepatic: NONE Renal: nephrolithiasis, bladder tumor s/p resection Musculoskeletal: fibromyalgia, gout, osteoarthritis, osteoporosis Psychiatric: NONE Endocrine: diabetes, hyperparathyroidism, hypothyroidism, obesity, W/ RESECTION Blood Disorders: NONE Cancer(s): basal cell carcinoma, melanoma EQUINE PHARMACOLOGY TECHNICIAN/Reproductive: NONE Other Medical Hx: Fibromyalgia History of MRSA: Yes History of VRE: No History of CDIFF: No Surgical History Surgical History: colon resection (right hemicolectomy 12 yrs [employer]), hernia repair-ventral, hip replacement, renal stent s/p TURBT 2 yrs [employer] s/p parathyroidectomy ECHO Results (as available) EF% 75 Past Family/Social History Family History Relations & Conditions if any MOTHER FH: breast cancer FH: thyroid cancer BROTHER FH: colon cancer SISTER FH: breast cancer FH: diabetes mellitus FH: HTN (hypertension) FH: thyroid cancer Relation not specified for: FH: brain cancer Psychosocial History Where do you live? Home Who Do You Live With? spouse Services at Home: None Primary Language: Latvian Functional Ability ADLs Independent: bathing. Needs Assist: dressing. Ambulation: independent IADLs Independent: shopping, housework, finances, food prep, telephone, transportation , medication admin. Review of Systems Review of Systems Constitutional: Reports: no symptoms. Comments Review of system-unobtainable because of altered mental status. Exam & Diagnostic Data Last 24 Hrs of Vital Signs/I&O Vital Signs Date Time Temp Pulse Resp B/P B/P Pulse O2 O2 Flow FiO2 Mean Ox Delivery Rate 07/19 0016 98.7 105 20 164/86 99 07/187 100.1 102 18 133/70 98 Room Air 07/18 2121 101.0 07/18 2006 102.0 07/18 2005 102.0 07/18 1918 96 Nasal Cannula 07/18 1909 101.4 113 18 167/72 96 Nasal 4.0L Cannula Intake & Output 07/19 0800 07/19 0000 07/18 1600 Intake Total 800 Output Total Balance 800 Intake, IV 800 Patient 210 lb Weight Weight Chair scale Measurement Method Physical Exam General Appearance Alert, confused, orientedx1, oral mucosa-dry and chapped lips. HEENT PERRLA Neck No JVD Cardiovascular Regular Rate, Normal S1, Normal S2, No Murmurs Lungs Clear to Auscultation Abdomen Normal Bowel Sounds, 7x8 mass,warm to touch with no discharge/bleeding. Neurological Strength at 5/5 X4 Ext Extremities b/l mild edema Last 24 Hrs of Labs/Rogelio: Laboratory Tests 07/19/17 0144: Lactic Acid 1.8 07/19/17 0057: Lactic Acid Cancelled 07/18/171927: Serum Alcohol < 10.0 07/18/171927: Anion Gap 13, Estimated GFR 45 L, BUN/Creatinine Ratio 34.2 H, Glucose 130 H, Calcium 9.3, Total Bilirubin 0.5, Direct Bilirubin 0.5 H, AST 30, ALT 19, Alkaline Phosphatase 40, Troponin I 0.02, Total Protein 6.7, Albumin 3.7, Amylase 37, Lipase 59, CBC w Diff NO MAN DIFF REQ, RBC 2.71 L, MCV 102.5 H, MCH 33.0 H, RDW 16.0 H, MPV 8.7, Gran % 80.0 H, Lymphocytes % 11.8 L, Monocytes % 7.3, Eosinophils % 0.6, Basophils % 0.3, Absolute Granulocytes 5.0, Absolute Lymphocytes 0.7 L, Absolute Monocytes 0.5, Absolute Eosinophils 0, Absolute Basophils 0, PUBS MCHC 32.2 L, Urine Opiates Screen 378.00, Methadone Screen 83, Barbiturate Screen < 60, Ur Phencyclidine Scrn < 6.00, Amphetamines Screen < 100, U Benzodiazepines Scrn < 85, Urine Cocaine Screen < 50, Urine Cannabis Screen < 5.00, Urine Color YEL, Urine Clarity CLDY H, Urine pH 6.5, Ur Specific [place] 1.015, Urine Protein 100 H, Urine Ketones NEG, Urine Nitrite NEG, Urine Bilirubin NEG, Urine Urobilinogen 0.2, Ur Leukocyte Esterase LARGE H , Ur Microscopic SEDIMENT EXAMINED, Urine RBC >75 H, Urine WBC PACKD H, Ur Epithelial Cells MANY H, Urine Hemoglobin LARGE H, Urine Glucose NEG Microbiology 07/18 2118 BLOOD: Blood Culture - RECD 07/18 2025 BLOOD: Blood Culture - RECD 07/18 1938 NASOPHARYN: Influenza Virus A & B Rapid Smear - COMP 07/18 1928 URINE ROUT: Urine Culture - RECD Diagnostic Data CXR Results IMPRESSION: Cardiomegaly. No gross bony abnormality seen. The soft tissues are normal. Assessment/Plan Assessment: This is a 66-year-old female with past medical history of gout, depression, fibromyalgia, hypothyroidism, diabetes mellitus, heart hyperlipidemia, colorectal cancer status post right hemicolectomy, abdominal hernia repair 8, small bowel obstruction, GI bleed him a bilateral renal calculi status post stent, bladder tumor status post resection, osteoarthritis, hyperparathyroidism, basal cell carcinoma, melanoma was brought in by her with altered mental status since today morning admitted to [facility] in view of sepsis of urological origin. Problem list 1. Sepsis of urological origin 2. Abdominal hernia ? Strangulation 3. Diabetes 4. Hypothyroidism 5. Hyperlipidemia 6. Bilateral renal stone status post stent 7. Primary parathyroidism status post parathyroidectomy. 8. History of GI bleed Assessment and plan * Sepsis of urological origin. Given the patient altered mental status and urine analysis showing signs of infection, given the history of previously treated for enterococcus, Escherichia coli, MRSA we will give 1 dose of vancomycin and give Ceftaz to cover for Pseudomonas.. Patient is extremely dehydrated, we will give normal saline at 150 mL per hour. We will send CBCs BEP and lactic acid. We will maintain strict input and output. WE WILL GET A UROLOGY AND id CONSULT IN A.M. We will give her nothing by mouth in view of high risk of aspiration. Patient swallowed bedside eval. * Abdominal hernia mass. We will take a CAT scan of the abdomen and pelvis to rule out any strangulation. * Bxvplksv-Xszc-Mdcl. * Hypothyroidism-we will continue her Synthyroid. * Depression-we will continue amitriptyline 70 mg at bedtime. * Hyperlipidemia-we will continue atorvastatin 40 mg daily. * We will send blood culture, urine culture rapid flu. * Code-full code * DVT prophylaxis Alps uPDATE ct ABDOMEN AND PELVIS 1. Bilateral hydroureteronephrosis with asymmetric fat stranding along the course of the right ureter and around the right kidney concerning for ascending infection in the setting of fever and altered mental status. Obstructive calculi are not identified though the ureterovesicular junctions cannot be evaluated due to streak artifact from hip arthroplasty hardware. Multiple sizable intrarenal calculi are unchanged from prior. 2. Decompressed bladder with perivesicular fat stranding in keeping with with probable urinary system infection. 3. Prominent portacaval lymph nodes, likely reactive. 4. Cholelithiasis without acute cholecystitis. 5. Scattered punctate splenic hypodensities, similar to prior, possibly related to granulomatous disease. 6. Redemonstrated atrophic appearance of the left kidney. 7. Post abdominal wall hernia repair with rectus diastases. Streak artifact limits evaluation for recurrent hernia. As Ranked By This Provider Problem List: 1. Sepsis 2. Urinary tract infection Core Measures/Misc (04/05) Acute Coronary Syndrome ACS Diagnosis: No Congestive Heart Failure Congestive Heart Failure Diagnosis No Cerebrovascular Accident CVA/TIA Diagnosis: No VTE (View Protocol) VTE Risk Factors Age>40 No Mechanical VTE Prophylaxis d/t Other No VTE Pharm Prophylaxis d/t Other Sepsis (View protocol) Sepsis Present: No John Gaming 07/19/17 0444: Resident Review Statement Resident Statement: examined this patient, discussed with regulatory affairs internship, agreed with regulatory affairs internship, amended to note Other Findings: Ms Ghotra is a 66 year old woman who was brought in for evaluation of fever, and altered mental status. PMHx Urological history: multiple UTIs w/ nephrolithiasis (s/p ureteroscopy and laser lithotripsy), recent evaluation for hematuria or vaginal bleeding by both Dr. East and Dr. Christianson (found indeterminate), recent tx w/ Ciprofloxacin and Diflucan for presumed UTI x 2 days ago. Other PMHx- type 2 diabetes, hypothyroidism( multiple thyroid nodules, on LT4 125 ug, TPO 32, anti-Tg < 15), primary hypothyroidism ( dx'ed 2013, inc Ca 11.2 in 2014-->9.2 ). Previous history of multiple abdominal wall hernia repairs, GI bleed. No added Since the patient was altered, the history was obtained from her over the phone. As per Mr. Ghotra, she was in his usual state of health until a few days ago. She developed increasing frequency, and urination, but did not have any dysuria. She then reached out to her urologist, who prescribed antibiotics. Subsequently, she developed fever with chills; and had decreased by mouth intake. In the last few hours prior to the ED visit, she developed an acute change in mental status, with increasing confusion. No chest pain, palpitations or shortness of breath were reported. Unsure, if she had any hematuria or vaginal bleeding. At the time of examination, she was febrile-temperature 101.4, tachycardic-pulse rate 113, blood pressure 167/72, pulse ox 96% on nasal cannula. On examination, she was alert but confused; was not oriented to time place or person. Mucosal membranes appeared dry, pallor present with no icterus. Abdominal examination was significant for protruding mass, appeared tender, 10 cm x 10 cm, no erythema or fluctuation seen. No CVA tenderness appreciated. Heart and lung examinations were within normal limits. No pedal edema was noted. Pertinent lab data: WBC 6.2, hemoglobin 8.9 (anemia), MCV 102.5, BUN 41, creatinine 1.2. Urinalysis revealed cloudy urine, leukocyte esterase positive, nitrites negative. She also has large hemoglobin. History data-previous microbiology data revealed growth (urine), of Escherichia coli 06/2017, Citrobacter in 2016, enterococcus 11/2016, pseudomonas in 08/[address] abdomen and pelvis revealed bilateral hydroureteronephrosis with asymmetric fat stranding along the course of the right ureter and around the right kidney concerning for ascending infection. Post abdominal wall hernia repair with rectus diastases. Streak artifact limits evaluation for recurrent hernia. Etiology in her case that caused acute change in mental status, could most likely be due to severe dehydration and urinary tract infection. She also has evidence of pyelonephritis and has hydronephrosis. She has been started on antibiotics, empirically, but need to be changed pending culture results. Since she has a complicated urological history, she would need evaluation by a urologist. Other etiologies for altered mental status could be fever, hypercalcemia, drugs; calcium is within normal limits, and U tox did not reveal any opiate use. Other intra-abdominal sources of infection are ruled out, by a CAT scan, but if suspicion is high, would repeat a CAT scan with by mouth contrast. Plan: #1 urinary tract infection, pyelonephritis- was treated partially by ciprofloxacin. Currently on ceftazidime. She had enterococcus in urine in the past, for which vancomycin was administered. Nitrite producing bacteria negative, however she was treated with ciprofloxacin for a short period of time which makes the result uninterpretable. Tailor antibiotics as per culture results. She also has hydronephrosis, for which she would need any immediate urologic evaluation. Trend lactate, and aggressive fluid resuscitation. Infectious disease consult to be obtained, for advice on choosing antibiotics. #2 abnormal urinalysis-check protein creatinine ratio. If the patient has nephrotic range proteinuria, would reevaluate the cause. Check HbA1c. #3 hypothyroidism-it is likely that abnormal thyroid hormone could be contributing to altered mental status, but TSH has been within normal limits. Continue LT4. #4 anemia-unclear etiology. Check Hemoccult. She has elevated MCV. Check B12, although unlikely cause for macrocytosis. Avoid any heparin or subcutaneous Lovenox at this time. Housekeeping: #1 DVT prophylaxis- ALPS #2 pain management-nonnarcotics #3 nothing by mouth-until mentation improves. Medication reconciliation- #1 Synthroid 125 g-continued #2 gabapentin-continued #3 Lipitor-continued #4 amitriptyline-continued Other medications need to be reconciled. Javier CUI, [facility] 07/19/17 0642: Attending MD Review Statement Attending Statement Attending MD Statement: examined this patient, discuss w/resident/PA/ASSISTANT MEDIA BUYER, agreed w/resident/PA/ASSISTANT MEDIA BUYER, reviewed images, amended to note Attending Assessment/Plan: 66 yo F with h/o recurrent UTI's, nephrolithiasis, urinary incontinence, with chronic urinary frequency and urgency, T2DM, CKD, HTN, depression, fibromyalgia, colon cancer, last admitted to [facility] (Aug 2016) for sepsis/ pseudomonas UTI, was brought in by for weakness, shaking chills, fever and confusion for the past 2 days. Patient remains confused and was unable to provide a history. was called by resident. Patient was prescribed Cipro and diflucan by Dr. East for a UTI, but reports no improvement in her symptoms. Tmax at home 104. Of note, patient has grown multiple drug resistant urine microorganisms citrobacter, enterococcus, [place], klebsiella, MRSA, pseudomonas and proteus. No recent intrumentation per . Vitals: Tmax 102, tachycardic to 100-110's, BP 133/70, sats 98% RA. Exam: patient is drowsy, lethargic, warm and flushed appearance, very dry mucous membranes, is arousable but not able to provide appropriate answers, Neck supple , PERRL, Chest b/l clear, Heart S1S2 regular, tachy, Abd: soft, midline large abdominal wall diastases - hernia, lower abdominal tenderness noted, BS+, LE: 1+ edema. Labs: no leukocytosis, H/H 8.9/27.7 (baseline 9-11/28-32), macrocytosis, BUN 41, creat 1.2 (baseline 0.9-1.1), lactic acid 1.8, trop neg. UA cloudy, large LE, RBC> 75, packed WBC, large Hb. Utox neg. Alcohol <10. CXR: cardiomegaly, otherwise clear. CT abd/pelvis: bilateral hydroureteronephrosis with asymmetric fat stranding along right ureter and kidney concerning for ascending infection, multiple intrarenal calculi. Decompressed bladder with perivesicular fat stranding, cholelithiasis, atrophic left kidney, post abdominal wall hernia repair with rectus diastases. EKG: sinus tachycardia, incomplete LBBB. Echo ( 2014): EF > 75%, mild to mod concentric LVH. Assessment and plan: 1. Sepsis of urologic origin complicated UTI 2. Acute cystitis with pyelonephritis with hematuria 3. Bilateral hydroureteronephrosis 4. Previous h/o recurrent UTIs with nephrolithiasis 5. CKD stage 3A 6. Previous UC with multi-drug resistant microorganisms 7. Chronic macrocytic anemia - Admit to general medicine - Panculture - NPO until mentation improves - Aggressive IV fluid hydration - IV ceftazidime for now, one dose vanco given in ER - Consult Urology and ID in AM - Trend renal functions and lactic acid - Strict I/O's - Hold oxybutinin and myrbetriq - Consider addition of flomax - Diabetes management check A1c, insulin SS. - Avoid narcotics and sedative meds - Avoid delirium triggers - Check TSH, free T4, folic acid, B12. DVT ppx Hep SC. Full code. CMR needs to be confirmed in AM.
[2017-07-19 00:16] VITALS: BP 164/86
--- NOTE | 2017-07-19 04:55 | CT SCAN REPORT ---
EXAMINATION: CT ABDOMEN AND PELVIS WITHOUT CONTRAST CLINICAL INFORMATION: Fever and altered mental status. COMPARISON: CT abdomen and pelvis dated 04/17/2017. TECHNIQUE: Multidetector volumetric imaging was performed from the superior aspect of the liver through the pubic symphysis. Sagittal and coronal reformatted images were obtained on the technologist's workstation. DLP: 1071 mGy-cm FINDINGS: LUNG BASES: The visualized lung bases are unremarkable. LIVER, GALLBLADDER, AND BILIARY TREE: The liver is normal in size, shape, and attenuation. No focal hepatic lesion or biliary ductal dilatation is present. Cholelithiasis is noted without evidence of acute cholecystitis. PANCREAS: Unremarkable. SPLEEN: There are scattered punctate hypodensities, similar to prior. ADRENAL GLANDS: Unremarkable. KIDNEYS AND URETERS: The left kidney is again noted to be mildly atrophic. There is asymmetric right-sided perinephric stranding. There are stable scattered bilateral intrarenal calculi, measuring up to 1.2 cm in the right lower pole and 0.7 cm in the left lower pole. There is bilateral hydroureteronephrosis. There are is fat stranding along with scattered surgical clips following the course of the distal right ureter. Obstructive calculi are not definitively identified but streak artifact makes evaluation of the ureterovesicular junctions impossible. BLADDER: The bladder is decompressed. Surrounding fat stranding is noted. Streak artifact from bilateral hip arthroplasty hardware otherwise limits evaluation. GASTROINTESTINAL TRACT: No abnormally dilated loops of small bowel. There is sigmoid diverticulosis without diverticulitis. A suture line is seen associated with colon in the right lower quadrant. No free fluid. ABDOMINAL WALL: Patient is status post anterior abdominal wall hernia repair. There is redemonstrated rectus diastases. Streak artifact limits evaluation for recurrent hernia. LYMPH NODES: Prominent portacaval lymph nodes are noted. VASCULAR: Atherosclerotic vascular calcifications are noted without abdominal aortic aneurysm. PELVIC VISCERA: Not well evaluated due to streak artifact in the pelvis. OSSEOUS STRUCTURES: Multilevel degenerative changes in the spine. Bilateral hip arthroplasty hardware is noted. Fairly extensive heterotopic calcification is noted around the right hip arthroplasty. IMPRESSION: 1. Bilateral hydroureteronephrosis with asymmetric fat stranding along the course of the right ureter and around the right kidney concerning for ascending infection in the setting of fever and altered mental status. Obstructive calculi are not identified though the ureterovesicular junctions cannot be evaluated due to streak artifact from hip arthroplasty hardware. Multiple sizable intrarenal calculi are unchanged from prior. 2. Decompressed bladder with perivesicular fat stranding in keeping with with probable urinary system infection. 3. Prominent portacaval lymph nodes, likely reactive. 4. Cholelithiasis without acute cholecystitis. 5. Scattered punctate splenic hypodensities, similar to prior, possibly related to granulomatous disease. 6. Redemonstrated atrophic appearance of the left kidney. 7. Post abdominal wall hernia repair with rectus diastases. Streak artifact limits evaluation for recurrent hernia.
[2017-07-19 05:19] LABS: ABSOLUTE BASOPHIL COUNT 0 /CUMM (0.0-0.2); ABSOLUTE EOSINOPHIL COUNT 0 /CUMM (0.0-0.7); ABSOLUTE GRANULOCYTE CT 4.8 /CUMM (1.4-6.5); ABSOLUTE LYMPH COUNT 0.7 /CUMM (1.2-3.4); ABSOLUTE MONOCYTE COUNT 0.4 /CUMM (0.10-0.60); BASOPHIL % 0.2 % (0.0-2.0); EOSINOPHIL % 0.2 % (0-5); HEMATOCRIT 27.5 % (37-47); MEAN CORPUSCULAR HGB 33.6 PG (27.0-31.0); MEAN CORPUSCULAR HGB CONC 32.8 G/DL (33.0-37.0); MEAN CORPUSCULAR VOLUME 102.3 FL (81.0-99.0); PLATELET COUNT 280 /CUMM (130-400); RBC DISTRIBUTION WIDTH 15.9 % (11.5-14.5); RED BLOOD CELL CT 2.69 /CUMM (4.20-5.40); WHITE BLOOD CELL COUNT 5.9 /CUMM (4.8-10.8)
--- NOTE | 2017-07-19 06:20 | Admission Certification ---
Admission Certification Certification Statement - As attending physician, I certify that at the time of - admission, based on clinical presentation, severity of - symptoms, need for further diagnostic testing and - therapeutic interventions, and risk of adverse outcomes - without in-hospital treatment, in my clinical assessment, - this patient requires an acute hospital stay for a minimum - of two nights or longer. I have also considered psychsocial - factors such as support system, advanced age, financial - issues, cognitive issues, and failed out-patient treatments, - past re-admission history, safety of patient, and lack of - compliance as applicable. Specific rationale supporting this admission is: Sepsis, acute UTI/ pyelonephritis, bilateral hydroureteronephrosis.
[2017-07-19 06:55] VITALS: BP 154/74
--- NOTE | 2017-07-19 10:16 | PN- Att Addend ---
Attending Addendum Attending Brief Note Patient seen and examined. Lying comfortably in bed not in any acute distress. present at bedside. Reports the patient is doing much better today. She is alert and oriented 3. She is conversant appropriately. Denies nausea vomiting. Denies abdominal pain. Denies dysuria at present. Vital Signs Date Time Temp Pulse Resp B/P B/P Pulse O2 O2 Flow FiO2 Mean Ox Delivery Rate 07/19 0710 31 07/19 0655 98.7 109 24 154/74 92 07/19 0016 98.7 105 20 164/86 99 07/18 2207 100.1 102 18 133/70 98 Room Air 07/18 2121 101.0 07/18 2006 102.0 07/18 2005 102.0 07/18 1918 96 Nasal Cannula 07/18 1909 101.4 113 18 167/72 96 Nasal 4.0L Cannula General appearance: Not in acute distress Heart: S1-S2 regular Lungs: Good entry bilaterally, clear to auscultation Abdomen: Obese, soft, nontender with normal bowel sounds Extremities: No pedal edema Skin: Intact with no rashes Neurological: no gross focal deficits. Laboratory Tests 07/19/17 0445: Lactic Acid 1.1 07/19/17 0445: Anion Gap 12, Estimated GFR 50 L, BUN/Creatinine Ratio 28.2 H, Hemoglobin A1c Pending, CBC w Diff NO MAN DIFF REQ, RBC 2.69 L, MCV 102.3 H, MCH 33.6 H, RDW 15.9 H, MPV 9.0, Gran % 82.0 H, Lymphocytes % 11.5 L, Monocytes % 6.1, Eosinophils % 0.2, Basophils % 0.2, Absolute Granulocytes 4.8, Absolute Lymphocytes 0.7 L, Absolute Monocytes 0.4, Absolute Eosinophils 0, Absolute Basophils 0, PUBS MCHC 32.8 L 07/19/17 0144: Lactic Acid 1.8 07/19/17 0057: Lactic Acid Cancelled 07/18/171927: Serum Alcohol < 10.0, Ur Random Creatinine Pending, U Random Total Protein Pending, Protein/Creatinin Ratio Pending 07/18/171927: Anion Gap 13, Estimated GFR 45 L, BUN/Creatinine Ratio 34.2 H, Glucose 130 H, Calcium 9.3, Total Bilirubin 0.5, Direct Bilirubin 0.5 H, AST 30, ALT 19, Alkaline Phosphatase 40, Troponin I 0.02, Total Protein 6.7, Albumin 3.7, Amylase 37, Lipase 59, Vitamin B12 890, Folate > 20.0 H, TSH 3.490, CBC w Diff NO MAN DIFF REQ, RBC 2.71 L, MCV 102.5 H, MCH 33.0 H, RDW 16.0 H, MPV 8.7, Gran % 80.0 H, Lymphocytes % 11.8 L, Monocytes % 7.3, Eosinophils % 0.6, Basophils % 0.3, Absolute Granulocytes 5.0, Absolute Lymphocytes 0.7 L, Absolute Monocytes 0.5, Absolute Eosinophils 0, Absolute Basophils 0, PUBS MCHC 32.2 L, Urine Opiates Screen 378.00, Methadone Screen 83, Barbiturate Screen < 60, Ur Phencyclidine Scrn < 6.00, Amphetamines Screen < 100, U Benzodiazepines Scrn < 85, Urine Cocaine Screen < 50, Urine Cannabis Screen < 5.00, Urine Color YEL, Urine Clarity CLDY H, Urine pH 6.5, Ur Specific [place] 1.015, Urine Protein 100 H, Urine Ketones NEG, Urine Nitrite NEG, Urine Bilirubin NEG, Urine Urobilinogen 0.2, Ur Leukocyte Esterase LARGE H, Ur Microscopic SEDIMENT EXAMINED, Urine RBC >75 H, Urine WBC PACKD H, Ur Epithelial Cells MANY H, Urine Hemoglobin LARGE H, Urine Glucose NEG Microbiology 07/18 2118 BLOOD: Blood Culture - RECD 07/18 2025 BLOOD: Blood Culture - RECD 07/18 1938 NASOPHARYN: Influenza Virus A & B Rapid Smear - COMP 07/18 1928 URINE ROUT: Urine Culture - RECD Problems: 1. Sepsis; likely of urologic origin 2. Bilateral hydronephrosis 3. Chronic kidney disease stage III 4. Chronic anemia Plan: -Patient appears to be improving fully ceftazidime administered overnight -Continue current course of antibiotic therapy. Urine cultures preliminary negative, follow complete results. Follow blood culture results. -She will require urology evaluation of her bilateral hydro-ureteronephrosis. -Mobilizations as tolerated.
--- NOTE | 2017-07-19 10:45 | PN- Housestaff ---
Subjective Follow-up For: Sepsis of urologic origin complicated UTI Acute cystitis with pyelonephritis with hematuria Bilateral hydroureteronephrosis Previous h/o recurrent UTIs with nephrolithiasis CKD stage 3A Previous UC with multi-drug resistant microorganisms Chronic macrocytic anemia Subjective: Patient appeared more oriented and was talking to me and the Stained Glass Artist. Patient denied fever but still c/o of some ab pain however was not sure where it is. Review of Systems Constitutional: Reports: see HPI. Objective Last 24 Hrs of Vital Signs/I&O Vital Signs Date Time Temp Pulse Resp B/P B/P Pulse O2 O2 Flow FiO2 Mean Ox Delivery Rate 07/19 08 Room Air Room Air 07/19 0710 31 07/19 0655 98.7 109 24 154/74 92 07/19 0016 98.7 105 20 164/86 99 07/18 2207 100.1 102 18 133/70 98 Room Air 07/181 101.0 07/18 2006 102.0 07/18 2005 102.0 07/18 191 96 Nasal Cannula 07/18 190 101.4 113 18 167/72 96 Nasal 4.0L Cannula Intake & Output 07/19 1600 07/19 0800 07/19 0000 Intake Total 1200 800 Output Total 100 Balance 1100 800 Intake, IV 1200 800 Output, Urine 100 Patient 95.254 kg Weight Weight Chair scale Measurement Method Physical Exam General Appearance: Alert, Cooperative, Mild Distress, less confused than admission, talking to me and Stained Glass Artist in room. Cardiovascular: Regular Rate Lungs: Clear to Auscultation, Normal Air Movement Abdomen: Soft, midline large abdominal wall diastases - hernia, lower abdominal tenderness noted, BS+ Neurological: Normal Speech Extremities: Normal Pulses, trace edema Current Medications: Current Medications Sig/Elizabeth Start time Last Medication Dose Route Stop Time Status Admin Acetaminophen 650 MG Q8 07/19 0600 AC 07/19 PO 0459 Acetaminophen 1,000 MG BID PRN 07/19 115 AC N/A 1 UNIT IV 07/20 2213 Acetaminophen 1,000 MG ONCE ONE 07/18 2015 DC 07/18 N/A 1 UNIT IV 07/18 Acetaminophen 0 .STK-MED ONE 07/18 2006 DC IV Amitriptyline HCl 75 MG AT BEDTIME 07/19 2200 AC PO Atorvastatin Calcium 40 MG 1700 07/19 170 AC PO Ceftazidime 1,000 MG Q12H 07/19 0115 AC 07/19 IV 0339 Ceftriaxone Sodium 0 .STK-MED ONE 07/18 2213 DC .ROUTE Ceftriaxone Sodium 1,000 MG ONCE ONE 07/18 2200 DC 07/18 IV 07/18 2201 221 Gabapentin 300 MG 1200 07/19 1200 DC PO Gabapentin 300 MG BID 07/19 1000 AC 07/19 PO 1145 Insulin Aspart 0 TIDAC 07/19 0800 AC SC Levothyroxine Sodium 0.125 MG DAILY AC 07/19 0700 AC 07/19 PO 0459 Sodium Chloride 1,000 ML BOLUS ONE 07/19 0700 DC 07/19 IV 07/19 0859 0751 Sodium Chloride 1,000 ML BOLUS ONE 07/19 0345 DC 07/19 IV 07/19 0444 0350 Sodium Chloride 1,000 ML Q8H 07/19 0030 AC 07/19 IV 0547 Sodium Chloride 1,000 ML BOLUS ONE 07/18 1930 DC 07/18 IV 07/18 2029 193 Vancomycin HCl 1,000 MG ONCE ONE 07/18 2215 DC 07/18 Dextrose/Water 250 ML IV 07/18 2314 2243 Last 24 Hrs of Lab/Rogelio Results Last 24 Hrs of Labs/Mics: Laboratory Tests 07/19/17444: Lactic Acid 1.1 07/19/17444: Anion Gap 12, Estimated GFR 50 L, BUN/Creatinine Ratio 28.2 H, Hemoglobin A1c Pending, CBC w Diff NO MAN DIFF REQ, RBC 2.69 L, MCV 102.3 H, MCH 33.6 H, RDW 15.9 H, MPV 9.0, Gran % 82.0 H, Lymphocytes % 11.5 L, Monocytes % 6.1, Eosinophils % 0.2, Basophils % 0.2, Absolute Granulocytes 4.8, Absolute Lymphocytes 0.7 L, Absolute Monocytes 0.4, Absolute Eosinophils 0, Absolute Basophils 0, PUBS MCHC 32.8 L 07/19/17 0144: Lactic Acid 1.8 07/19/17 0057: Lactic Acid Cancelled 07/18/171927: Serum Alcohol < 10.0, Ur Random Creatinine 33.0, U Random Total Protein 110 H, Protein/Creatinin Ratio 3.3 H 07/18/171927: Anion Gap 13, Estimated GFR 45 L, BUN/Creatinine Ratio 34.2 H, Glucose 130 H, Calcium 9.3, Total Bilirubin 0.5, Direct Bilirubin 0.5 H, AST 30, ALT 19, Alkaline Phosphatase 40, Troponin I 0.02, Total Protein 6.7, Albumin 3.7, Amylase 37, Lipase 59, Vitamin B12 890, Folate > 20.0 H, TSH 3.490, CBC w Diff NO MAN DIFF REQ, RBC 2.71 L, MCV 102.5 H, MCH 33.0 H, RDW 16.0 H, MPV 8.7, Gran % 80.0 H, Lymphocytes % 11.8 L, Monocytes % 7.3, Eosinophils % 0.6, Basophils % 0.3, Absolute Granulocytes 5.0, Absolute Lymphocytes 0.7 L, Absolute Monocytes 0.5, Absolute Eosinophils 0, Absolute Basophils 0, PUBS MCHC 32.2 L, Urine Opiates Screen 378.00, Methadone Screen 83, Barbiturate Screen < 60, Ur Phencyclidine Scrn < 6.00, Amphetamines Screen < 100, U Benzodiazepines Scrn < 85, Urine Cocaine Screen < 50, Urine Cannabis Screen < 5.00, Urine Color YEL, Urine Clarity CLDY H, Urine pH 6.5, Ur Specific [place] 1.015, Urine Protein 100 H, Urine Ketones NEG, Urine Nitrite NEG, Urine Bilirubin NEG, Urine Urobilinogen 0.2, Ur Leukocyte Esterase LARGE H, Ur Microscopic SEDIMENT EXAMINED, Urine RBC >75 H, Urine WBC PACKD H, Ur Epithelial Cells MANY H, Urine Hemoglobin LARGE H, Urine Glucose NEG Microbiology 07/18 2118 BLOOD: Blood Culture - WKST 07/18 2025 BLOOD: Blood Culture - RECD 07/18 1938 NASOPHARYN: Influenza Virus A & B Rapid Smear - COMP 07/18 1928 URINE ROUT: Urine Culture - RES GRAM NEGATIVE RODS Assessment/Plan Assessment: Ms. Lawson is a 66 yo F with h/o recurrent UTI's, nephrolithiasis, urinary incontinence, with chronic urinary frequency and urgency, T2DM, CKD, HTN, depression, fibromyalgia, colon cancer, last admitted to [facility] (Aug 2016) for sepsis/ pseudomonas UTI, was brought in by for weakness, shaking chills, fever and confusion for the past 2 days. Patient remained confused and was unable to provide a history. was called by admitting team. Patient was prescribed Cipro and Diflucan by Dr. East for a UTI, but reported no improvement in her symptoms. Tmax at home 104. Of note, patient had grown multiple drug resistant urine microorganisms citrobacter, enterococcus, [place], klebsiella, MRSA, pseudomonas and proteus. No recent intrumentation per . Dr. Abdalla put the stent about 3 years ago because patient had fever? per , and was taken out sometime unknown. Non-obstructing calculi. Had tried to broke up but did not get all out. ER Course: Vitals: Tmax 102, tachycardic to 100-110's, BP 133/70, sats 98% RA. Exam: Drowsy, lethargic, warm and flushed appearance, very dry mucous membranes, is arousable but not able to provide appropriate answers, Neck supple, PERRL, Chest b/l clear, Heart S1S2 regular, tachy, Abd: soft, midline large abdominal wall diastases - hernia, lower abdominal tenderness noted, BS+, LE: 1+ edema. Labs: no leukocytosis, H/H 8.9/27.7 (baseline 9-11/28-32), macrocytosis, BUN 41, creat 1.2 (baseline 0.9-1.1), lactic acid 1.8, trop neg. UA cloudy, large LE, RBC> 75, packed WBC, large Hb. Utox neg. Alcohol <10. CXR: cardiomegaly, otherwise clear. CT abd/pelvis: bilateral hydroureteronephrosis with asymmetric fat stranding along right ureter and kidney concerning for ascending infection, multiple intrarenal calculi. Decompressed bladder with perivesicular fat stranding, cholelithiasis, atrophic left kidney, post abdominal wall hernia repair with rectus diastases. EKG: sinus tachycardia, incomplete LBBB. Echo (2015): EF > 75%, mild to mod concentric LVH. Assessment and plan: #Urosepsis w/ complicated UTI #Acute cystitis with pyelonephritis with hematuria #Bilateral hydroureteronephrosis #Previous h/o recurrent UTIs with nephrolithiasis #CKD stage 3A #Previous UC with multi-drug resistant microorganisms #Chronic macrocytic anemia - Pending Panculture - advance to clear liquid diet for now as mentation had improved. - IV ceftazidime for now, one dose vanco given in ER - Pending ID recommendation - Urology recommended no active intervention until patient's clinical condition became more stable. Dr. East will be back on Tues for stent placement if needed. Currently, patient's hydronephrosos was likely chronic as no obstructive calculi/stent was in bilateral kidney. - Lactic acid resolved to 1.1 on latest lab. - Creatinine resolved to 1.1 on latest lab. - Strict I/O's - Hold oxybutinin and myrbetriq - Consider addition of flomax - Diabetes management check A1c, insulin SS. - Avoid narcotics and sedative meds - Avoid delirium triggers - Check TSH, free T4, folic acid, B12. DVT ppx Hep SC. Full code. Problem List: 1. Urinary tract infection 2. Kidney stones 3. Macrocytic anemia 4. Pyelonephritis 5. Hernia Pain Ratin Pain Location: Right quadrant ab but patient appeared not entirely oriented to give a pain scale Pain Goal: Pain 4 or less Pain Plan: see AP Tomorrow's Labs & Rationales: CBC/BEP
--- NOTE | 2017-07-19 13:23 | Cons- Infect Disease ---
General Information and HPI Consulting Request Date of Consult: 07/19/17 Requested By: Javier CUI,Quita Reason for Consult: Abx advice Source of Information: primary team, patient Exam Limitations: clinical condition History of Present Illness: 66-year-old female with past medical history of gout, OA, depression, fibromyalgia, hypothyroidism, DM2, HLD, colorectal cancer s/p R hemicolectomy, abdominal hernia repair, SBO, GIB, bilateral renal calculi status post stenting, multiple recurrent UTI's, bladder tumor s/p resection, hyperparathyroidism was brought in to [facility] by her with altered mental status, high fever, chills and weakness on 07/18/17. Her symptoms started 2 days prior to admission; patient called Dr East and was prescribed Cipro and Diflucan. Currently afebrile; feeling better. Pino cath patent. No BM past 2 days. Allergies/Medications Allergies: Coded Allergies: Penicillins (Intermediate, HIVE 06/01/17) Iodinated Contrast- Oral and IV Dye (IODINATED CONTRAST MEDIA - IV DYE) (RASH ) Uncoded Allergies: COBAN (Intermediate, RASH 10/20/16) MAURICIO (Intermediate, HIVES 06/01/17) Home Med List: Allopurinol 300 MG TABLET 1 TAB PO DAILY GOUT (Reported) Amitriptyline HCl 75 MG TABLET 1 TAB PO QPM UNKNOWN (Reported) Cholecalciferol (Vitamin D3) 1,000 UNIT TABLET 1 TAB PO DAILY VITAMIN SUPPORT (Reported) Ciprofloxacin HCl (Cipro) 500 MG TABLET 1 TAB PO BID INFECTION Cyanocobalamin (Vitamin B-12) 1,000 MCG TABLET 1 TAB PO DAILY VITAMIN SUPPORT (Reported) Docusate Sodium (Colace) 100 MG CAPSULE 1 CAP PO BID CONSTIPATION Duloxetine HCl 60 MG CAPSULE.DR 1 CAP PO DAILY FIBROMYALGIA (Reported) Fluconazole (Diflucan) 150 MG TABLET 1 TAB PO ONCE YEAST Furosemide 40 MG TABLET 1 TAB PO BID EDEMA (Reported) Gabapentin (Neurontin) 300 MG CAPSULE 2 CAP PO BID PAIN (Reported) Gabapentin 300 MG CAPSULE 1 CAP PO 1200 PAIN (Reported) Hydrocodone/Acetaminophen (Hydrocodon-Acetaminophen 5-325) 5 MG-325 MG TABLET 1 TAB PO BIDP PRN PAIN (Reported) Levothyroxine Sodium 125 MCG TABLET 1 TAB PO DAILY AC THYROID (Reported) Melatonin 3 MG TABLET 1 TAB PO QPM SLEEP (Reported) Metformin HCl 1,000 MG TABLET 1 TAB PO BID DM (Reported) Oxybutynin Chloride (Oxybutynin Chloride ER) 15 MG TAB.ER.24 1 TAB PO AD PRN BLADDER (Reported) Simvastatin (Zocor*) 40 MG TABLET 1 TAB PO QPM CHOLESTEROL (Reported) Current Medications: Current Medications Sig/Elizabeth Start time Last Medication Dose Route Stop Time Status Admin Acetaminophen 650 MG Q8 07/19 0600 AC 07/19 PO 0459 Acetaminophen 1,000 MG BID PRN 07/19 011 AC N/A 1 UNIT IV 07/20 2213 Acetaminophen 1,000 MG ONCE ONE 07/18 2015 DC 07/18 N/A 1 UNIT IV 07/18 Acetaminophen 0 .STK-MED ONE 07/18 2006 DC IV Amitriptyline HCl 75 MG AT BEDTIME 07/19 2200 AC PO Atorvastatin Calcium 40 MG 1700 07/19 1700 AC PO Ceftazidime 1,000 MG Q12H 07/19 011 AC 07/19 IV 0339 Ceftriaxone Sodium 0 .STK-MED ONE 07/18 2213 DC .ROUTE Ceftriaxone Sodium 1,000 MG ONCE ONE 07/18 2200 DC 07/18 IV 07/18 2201 221 Gabapentin 300 MG 1200 07/19 1200 DC PO Gabapentin 300 MG BID 07/19 1000 AC 07/19 PO 1145 Insulin Aspart 0 TIDAC 07/19 0800 AC SC Levothyroxine Sodium 0.125 MG DAILY AC 07/19 0700 AC 07/19 PO 0459 Sodium Chloride 1,000 ML BOLUS ONE 07/19 0700 DC 07/19 IV 07/19 0859 0751 Sodium Chloride 1,000 ML BOLUS ONE 07/19 0345 DC 07/19 IV 07/19 0444 0350 Sodium Chloride 1,000 ML Q8H 07/19 0030 AC 07/19 IV 0547 Sodium Chloride 1,000 ML BOLUS ONE 07/18 1930 DC 07/18 IV 07/18 2029 193 Vancomycin HCl 1,000 MG ONCE ONE 07/18 2215 DC 07/18 Dextrose/Water 250 ML IV 07/18 2314 2243 Past History Travel History Traveled to [place] past 21 day No Medical History Blood Transfusion Hx: No Neurological: NONE EENT: NONE Cardiovascular: hypertension, hyperlipidemia Respiratory: NONE Gastrointestinal: GERD, colorectal cancer s/p R hemicolectomy, multiple abdominal hernias s/p repair (8x), SBO secondary to adhesions, gastric outlet obstruction, GI bleed, hemorrhoids GASTRIC OUTLET OBSTRUCTIO Hepatic: NONE Renal: nephrolithiasis, bladder tumor s/p resection Musculoskeletal: fibromyalgia, gout, osteoarthritis, osteoporosis Psychiatric: NONE Endocrine: diabetes, hyperparathyroidism, hypothyroidism, obesity, W/ RESECTION Blood Disorders: NONE Cancer(s): basal cell carcinoma, melanoma 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: 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 Other Medical Hx: Fibromyalgia History of MRSA: No History of VRE: No History of CDIFF: No Isolation History: Standard Surgical History Surgical History: colon resection (right hemicolectomy 12 yrs [employer]), hernia repair-ventral, hip replacement, renal stent s/p TURBT 2 yrs [employer] s/p parathyroidectomy Family History Relations & Conditions If Any: MOTHER FH: breast cancer FH: thyroid cancer BROTHER FH: colon cancer SISTER FH: breast cancer FH: diabetes mellitus FH: HTN (hypertension) FH: thyroid cancer Relation not specified for: FH: brain cancer Psychosocial History Where Do You Live? Home Who Do You Live With? spouse Services at Home: None Primary Language: Malay Smoking Status: Never Smoked Functional Ability ADLs Independent: bathing. Needs Assist: dressing. Ambulation: independent IADLs Independent: shopping, housework, finances, food prep, telephone, transportation , medication admin. ECHO Results (as available) EF% 75 Review of Systems Comments 12 points reviewe s noted, otherwise negative Exam & Diagnostic Data Last 24 Hrs of Vital Signs/I&O Vital Signs Date Time Temp Pulse Resp B/P B/P Pulse O2 O2 Flow FiO2 Mean Ox Delivery Rate 07/19 08 Room Air Room Air 07/19 0710 31 07/19 0655 98.7 109 24 154/74 92 07/19 0016 98.7 105 20 164/86 99 07/18 2207 100.1 102 18 133/70 98 Room Air 07/18 2121 101.0 07/18 2006 102.0 07/18 2005 102.0 07/188 96 Nasal Cannula 07/18 1909 101.4 113 18 167/72 96 Nasal 4.0L Cannula Intake & Output 07/19 1600 07/19 0800 07/19 0000 Intake Total 1200 800 Output Total 100 Balance 1100 800 Intake, IV 1200 800 Output, Urine 100 Patient 210 lb Weight Weight Chair scale Measurement Method Physical Exam Other Physical Findings: General Appearance Alert, oriented, NAD HEENT AT, oral mucosa moist Neck No JVD Cardiovascular Regular Rate, Normal S1, Normal S2, No Murmurs Lungs Clear to Auscultation Abdomen Normal Bowel Sounds Neurological Strength at 5/5 X4 Ext Extremities b/l mild edema Last 24 Hours of Lab Results: Laboratory Tests 07/19 07/19 07/19 0445 0445 0144 Chemistry Sodium (137 - 145 mmol/L) 141 Potassium (3.5 - 5.1 mmol/L) 4.0 Chloride (98 - 107 mmol/L) 105 Carbon Dioxide (22 - 30 mmol/L) 23 Anion Gap (5 - 16) 12 BUN (7 - 17 mg/dL) 31 H Creatinine (0.5 - 1.0 mg/dL) 1.1 H Estimated GFR (>60 ml/min) 50 L BUN/Creatinine Ratio (7 - 25 %) 28.2 H Hemoglobin A1c (4.2 - 5.8 %) Pending Lactic Acid (0.7 - 2.1 mmol/L) 1.1 1.8 Hematology CBC w Diff NO MAN DIFF REQ WBC (4.8 - 10.8 /CUMM) 5.9 RBC (4.20 - 5.40 /CUMM) 2.69 L Hgb (12.0 - 16.0 G/DL) 9.0 L Hct (37 - 47 %) 27.5 L MCV (81.0 - 99.0 FL) 102.3 H MCH (27.0 - 31.0 PG) 33.6 H RDW (11.5 - 14.5 %) 15.9 H Plt Count (130 - 400 /CUMM) 280 MPV (7.4 - 10.4 FL) 9.0 Gran % (42.2 - 75.2 %) 82.0 H Lymphocytes % (20.5 - 51.1 %) 11.5 L Monocytes % (1.7 - 9.3 %) 6.1 Eosinophils % (0 - 5 %) 0.2 Basophils % (0.0 - 2.0 %) 0.2 Absolute Granulocytes (1.4 - 6.5 /CUMM) 4.8 Absolute Lymphocytes (1.2 - 3.4 /CUMM) 0.7 L Absolute Monocytes (0.10 - 0.60 /CUMM) 0.4 Absolute Eosinophils (0.0 - 0.7 /CUMM) 0 Absolute Basophils (0.0 - 0.2 /CUMM) 0 PUBS MCHC (33.0 - 37.0 G/DL) 32.8 L 07/19 Chemistry Sodium (137 - 145 mmol/L) 140 Potassium (3.5 - 5.1 mmol/L) 4.7 Chloride (98 - 107 mmol/L) 104 Carbon Dioxide (22 - 30 mmol/L) 23 Anion Gap (5 - 16) 13 BUN (7 - 17 mg/dL) 41 H Creatinine (0.5 - 1.0 mg/dL) 1.2 H Estimated GFR (>60 ml/min) 45 L BUN/Creatinine Ratio (7 - 25 %) 34.2 H Glucose (65 - 99 mg/dL) 130 H Lactic Acid Cancelled Calcium (8.4 - 10.2 mg/dL) 9.3 Total Bilirubin (0.2 - 1.3 mg/dL) 0.5 Direct Bilirubin (< 0.4 mg/dL) 0.5 H AST (14 - 36 U/L) 30 ALT (9 - 52 U/L) 19 Alkaline Phosphatase (<127 U/L) 40 Troponin I (< 0.11 ng/ml) 0.02 Total Protein (6.3 - 8.2 g/dL) 6.7 Albumin (3.5 - 5.0 g/dL) 3.7 Amylase (30 - 110 U/L) 37 Lipase (23 - 300 U/L) 59 Vitamin B12 (239 - 931 pg/mL) 890 Folate (2.76 - 20.0 ng/mL) > 20.0 H TSH (0.270 - 4.200 uIU/mL) 3.490 Hematology CBC w Diff NO MAN DIFF REQ WBC (4.8 - 10.8 /CUMM) 6.2 RBC (4.20 - 5.40 /CUMM) 2.71 L Hgb (12.0 - 16.0 G/DL) 8.9 L Hct (37 - 47 %) 27.7 L MCV (81.0 - 99.0 FL) 102.5 H MCH (27.0 - 31.0 PG) 33.0 H RDW (11.5 - 14.5 %) 16.0 H Plt Count (130 - 400 /CUMM) 311 MPV (7.4 - 10.4 FL) 8.7 Gran % (42.2 - 75.2 %) 80.0 H Lymphocytes % (20.5 - 51.1 %) 11.8 L Monocytes % (1.7 - 9.3 %) 7.3 Eosinophils % (0 - 5 %) 0.6 Basophils % (0.0 - 2.0 %) 0.3 Absolute Granulocytes (1.4 - 6.5 /CUMM) 5.0 Absolute Lymphocytes (1.2 - 3.4 /CUMM) 0.7 L Absolute Monocytes (0.10 - 0.60 /CUMM) 0.5 Absolute Eosinophils (0.0 - 0.7 /CUMM) 0 Absolute Basophils (0.0 - 0.2 /CUMM) 0 PUBS MCHC (33.0 - 37.0 G/DL) 32.2 L Toxicology Urine Opiates Screen (>2000 NG/ML) 378.00 Methadone Screen (>300 NG/ML) 83 Barbiturate Screen (>200 NG/ML) < 60 Ur Phencyclidine Scrn (>25 NG/ML) < 6.00 Amphetamines Screen (>1000 NG/ML) < 100 U Benzodiazepines Scrn (>200 NG/ML) < 85 Urine Cocaine Screen (>300 NG/ML) < 50 Urine Cannabis Screen (>50 NG/ML) < 5.00 Serum Alcohol (<10 MG/DL) < 10.0 Urines Urine Color (YEL,AMB,STR) YEL Urine Clarity (CLEAR) CLDY H Urine pH (5.0 - 8.0) 6.5 Ur Specific [place] (1.001 - 1.035) 1.015 Urine Protein (NEG,<30 MG/DL) 100 H Urine Ketones (NEG) NEG Urine Nitrite (NEG) NEG Urine Bilirubin (NEG) NEG Urine Urobilinogen (0.1 - 1.0 EU/dl) 0.2 Ur Leukocyte Esterase (NEG) LARGE H Ur Microscopic SEDIMENT EXAMINED Urine RBC (0 - 5 /HPF) >75 H Urine WBC (0 - 2 /HPF) PACKD H Ur Epithelial Cells (NONE,FEW) MANY H Urine Hemoglobin (NEG) LARGE H Ur Random Creatinine (mg/dL) 33.0 U Random Total Protein (0 - 12 mg/dL) 110 H Protein/Creatinin Ratio (< 0.2) 3.3 H Urine Glucose (N MG/DL) NEG Last 24 Hours of Rogelio Results: SPEC #: [id number] KERRY: 07/18/17 STATUS: RES RECD: 07/18/[address]: Isaiah CUI, Richy Lopez SOURCE: URINE ROUT ENTR: 07/18/[address]: Norberto CUI,Maurisio Grady SPDESC: URIN CLEAN ORDERED: URINE CULTURE COMMENT: TRIO Procedure Result > URINE CULTURE Preliminary 07/19/17 Greater than 100,000 colonies per ml of: GRAM NEGATIVE RODS Identification and susceptibilities to follow Diagnostic Data Recent Imaging Findings: SERVICE DATE: 07/19/17 EXAM TYPE: CAT - CT ABD & PELVIS W/O IV CONTRAS EXAMINATION: CT ABDOMEN AND PELVIS WITHOUT CONTRAST CLINICAL INFORMATION: Fever and altered mental status. COMPARISON: CT abdomen and pelvis dated 04/17/2017. TECHNIQUE: Multidetector volumetric imaging was performed from the superior aspect of the liver through the pubic symphysis. Sagittal and coronal reformatted images were obtained on the technologist's workstation. DLP: 1071 mGy-cm FINDINGS: LUNG BASES: The visualized lung bases are unremarkable. LIVER, GALLBLADDER, AND BILIARY TREE: The liver is normal in size, shape, and attenuation. No focal hepatic lesion or biliary ductal dilatation is present. Cholelithiasis is noted without evidence of acute cholecystitis. PANCREAS: Unremarkable. SPLEEN: There are scattered punctate hypodensities, similar to prior. ADRENAL GLANDS: Unremarkable. KIDNEYS AND URETERS: The left kidney is again noted to be mildly atrophic. There is asymmetric right-sided perinephric stranding. There are stable scattered bilateral intrarenal calculi, measuring up to 1.2 cm in the right lower pole and 0.7 cm in the left lower pole. There is bilateral hydroureteronephrosis. There are is fat stranding along with scattered surgical clips following the course of the distal right ureter. Obstructive calculi are not definitively identified but streak artifact makes evaluation of the ureterovesicular junctions impossible. BLADDER: The bladder is decompressed. Surrounding fat stranding is noted. Streak artifact from bilateral hip arthroplasty hardware otherwise limits evaluation. GASTROINTESTINAL TRACT: No abnormally dilated loops of small bowel. There is sigmoid diverticulosis without diverticulitis. A suture line is seen associated with colon in the right lower quadrant. No free fluid. ABDOMINAL WALL: Patient is status post anterior abdominal wall hernia repair. There is redemonstrated rectus diastases. Streak artifact limits evaluation for recurrent hernia. LYMPH NODES: Prominent portacaval lymph nodes are noted. VASCULAR: Atherosclerotic vascular calcifications are noted without abdominal aortic aneurysm. PELVIC VISCERA: Not well evaluated due to streak artifact in the pelvis. OSSEOUS STRUCTURES: Multilevel degenerative changes in the spine. Bilateral hip arthroplasty hardware is noted. Fairly extensive heterotopic calcification is noted around the right hip arthroplasty. IMPRESSION: 1. Bilateral hydroureteronephrosis with asymmetric fat stranding along the course of the right ureter and around the right kidney concerning for ascending infection in the setting of fever and altered mental status. Obstructive calculi are not identified though the ureterovesicular junctions cannot be evaluated due to streak artifact from hip arthroplasty hardware. Multiple sizable intrarenal calculi are unchanged from prior. 2. Decompressed bladder with perivesicular fat stranding in keeping with with probable urinary system infection. 3. Prominent portacaval lymph nodes, likely reactive. 4. Cholelithiasis without acute cholecystitis. 5. Scattered punctate splenic hypodensities, similar to prior, possibly related to granulomatous disease. 6. Redemonstrated atrophic appearance of the left kidney. 7. Post abdominal wall hernia repair with rectus diastases. Streak artifact limits evaluation for recurrent hernia. DICTATED BY: Quan Cruz MD DATE/TIME DICTATED:07/19/17434 QUILL COLLECTOR:TIFFANY DATE/TIME TRANSCRIBED:07/19/17434 CONFIDENTIAL, DO NOT COPY WITHOUT APPROPRIATE AUTHORIZATION. <Electronically signed in Other Vendor System> Assessment/Plan Assessment/Plan Impression: 66-year-old female with multiple medical problems including gout, OA, DM2, HLD, colorectal cancer s/p R hemicolectomy, bilateral renal calculi status post stenting admitted 07/18/17. Complicated UTI (GNR); CT A/P revealing b/l hydroureteronephrosis with asymmetric fat stranding along the course of the right ureter and around the right kidney concerning for ascending infection [] multiple sizable intrarenal calculi are unchanged from prior. Fever History of recurrent UTI's (Citrobacter freundii most recently 06/05 R Cefoxitin ; likely amp C producing beta lactamase organism resistant to most beta lactam antibiotics with exception of carbapenems); renal calculi likely a nidus for reinfection Mild LATRICIA Suggestion: 1. F/U BC/UC final results to further guide antibiotic treatment; 2. Would favor treatment with Meropenem 1 gm q 8 h; if GNR organism sensitive to Cipro abx can be deescalated. F/U urology recom; would d/c pino cath. 3. Can d/c vancomycin/third gen CS. 4. Monitor CBC, BMP. 5. Bowel regimen. Consult Acknowledgment - Thank you for your consult request.
[2017-07-19 15:08] VITALS: BP 142/70
[2017-07-19 21:54] VITALS: BP 120/64
[2017-07-20 06:47] VITALS: BP 118/66
[2017-07-20 08:57] LABS: ABSOLUTE BASOPHIL COUNT 0 /CUMM (0.0-0.2); ABSOLUTE EOSINOPHIL COUNT 0.1 /CUMM (0.0-0.7); ABSOLUTE GRANULOCYTE CT 4.8 /CUMM (1.4-6.5); ABSOLUTE LYMPH COUNT 0.9 /CUMM (1.2-3.4); ABSOLUTE MONOCYTE COUNT 0.3 /CUMM (0.10-0.60); BASOPHIL % 0.3 % (0.0-2.0); EOSINOPHIL % 0.9 % (0-5); GRANULOCYTE % 78.6 % (42.2-75.2); HEMATOCRIT 24.7 % (37-47); MEAN CORPUSCULAR HGB 33.7 PG (27.0-31.0); MEAN CORPUSCULAR HGB CONC 32.7 G/DL (33.0-37.0); MEAN CORPUSCULAR VOLUME 103.1 FL (81.0-99.0); MEAN PLATELET VOLUME 9.1 FL (7.4-10.4); PLATELET COUNT 262 /CUMM (130-400); RBC DISTRIBUTION WIDTH 16.1 % (11.5-14.5); WHITE BLOOD CELL COUNT 6.2 /CUMM (4.8-10.8)
--- NOTE | 2017-07-20 10:13 | PN- Att Addend ---
Attending Addendum Attending Brief Note Patient seen and examined. Resting comfortably and not in any distress. No issues overnight reported by nursing staff. She reports feeling much better. Denies nausea vomiting. Denies abdominal pain. present at the bedside. T-max overnight was 100.7 Vital Signs Date Time Temp Pulse Resp B/P B/P Pulse O2 O2 Flow FiO2 Mean Ox Delivery Rate 07/20 0647 98.4 86 18 118/66 96 07/19 2315 98.7 07/19 2240 98.7 07/19 2154 100.7 82 19 120/64 96 Room Air 07/19 2143 100.7 07/19 1508 98.0 96 20 142/70 97 Room Air General appearance: Not in any distress Heart: S1-S2 regular Lungs: Clear to auscultation bilaterally Abdomen: Obese, soft, nontender with normal bowel sounds Extremities: No pedal edema Skin: Intact Laboratory Tests 07/20/17 0745: Anion Gap 11, Estimated GFR 55 L, BUN/Creatinine Ratio 20.0, CBC w Diff NO MAN DIFF REQ, RBC 2.40 L, MCV 103.1 H, MCH 33.7 H, RDW 16.1 H, MPV 9.1, Gran % 78.6 H, Lymphocytes % 15.0 L, Monocytes % 5.2, Eosinophils % 0.9, Basophils % 0.3, Absolute Granulocytes 4.8, Absolute Lymphocytes 0.9 L, Absolute Monocytes 0.3, Absolute Eosinophils 0.1, Absolute Basophils 0, PUBS MCHC 32.7 L Problems: 1. Sepsis; likely of urologic origin 2. Bilateral hydronephrosis 3. Chronic kidney disease stage III 4. Chronic anemia Plan: -ID evaluation appreciated. Patient was improving following administration of cefazolin however antibiotic therapy has been changed to meropenem pending complete results of urine cultures. -Please consult patient's urologist service tomorrow regarding her bilateral hydroureteronephrosis. Renal function remained stable. -Slight downward trending the hemoglobin level noted. Obtain stool guaiac and monitor hemoglobin levels. -Begin patient on DVT prophylaxis with subcutaneous heparin.
--- NOTE | 2017-07-20 11:33 | PN- Housestaff ---
Subjective Follow-up For: Sepsis of urologic origin complicated UTI w/ Ecoli Acute cystitis with pyelonephritis with hematuria Bilateral hydroureteronephrosis Previous h/o recurrent UTIs with nephrolithiasis CKD stage 3A Previous UC with multi-drug resistant microorganisms Chronic macrocytic anemia Subjective: Patient felt improved in general. Would like to know when she could go home. Review of Systems Constitutional: Reports: see HPI. Objective Last 24 Hrs of Vital Signs/I&O Vital Signs Date Time Temp Pulse Resp B/P B/P Pulse O2 O2 Flow FiO2 Mean Ox Delivery Rate 07/20 1517 100.0 110 18 132/72 96 07/20 0647 98.4 86 18 118/66 96 07/19 2315 98.7 07/19 2240 98.7 07/19 2154 100.7 82 19 120/64 96 Room Air 07/19 2143 100.7 Intake & Output 07/20 1600 07/20 0800 07/20 0000 Intake Total 1120 575 Output Total 760 600 Balance 360 -25 Intake, IV 1000 375 Intake, Oral 120 200 Output, Urine 760 600 Physical Exam General Appearance: Alert, Oriented X3, Cooperative, No Acute Distress Cardiovascular: Regular Rate Lungs: Clear to Auscultation, Normal Air Movement Abdomen: Normal Bowel Sounds, Soft, No Tenderness Current Medications: Current Medications Sig/Elizabeth Start time Last Medication Dose Route Stop Time Status Admin Acetaminophen 650 MG Q8 07/19 0600 AC 07/20 PO 1430 Acetaminophen 1,000 MG BID PRN 07/19 0115 AC 07/19 N/A 1 UNIT IV 07/20 2214 2143 Amitriptyline HCl 75 MG AT BEDTIME 07/19 2200 AC 07/19 PO 2017 Atorvastatin Calcium 40 MG 1700 07/19 1700 AC 07/20 PO 1625 Gabapentin 300 MG BID 07/19 1000 AC 07/20 PO 0850 Heparin Sodium 5,000 UNIT Q8 07/20 1400 AC 07/20 (Porcine) SC 1430 Insulin Aspart 0 TIDAC 07/19 0800 AC SC Levothyroxine Sodium 0.125 MG DAILY AC 07/19 0700 AC 07/20 PO 0528 Meropenem 1 GM Q8H 07/20 2230 AC IV Meropenem 1 GM IQ8 07/19 1600 DC 07/20 IV 1427 Sodium Chloride 1,000 ML Q8H 07/19 0030 AC 07/20 IV 1753 Assessment/Plan Assessment: Ms. Lawson is a 66 yo F with h/o recurrent UTI's, nephrolithiasis, urinary incontinence, with chronic urinary frequency and urgency, T2DM, CKD, HTN, depression, fibromyalgia, colon cancer, last admitted to [facility] (Aug 2016) for sepsis/ pseudomonas UTI, was brought in by for weakness, shaking chills, fever and confusion for the past 2 days. Patient remained confused and was unable to provide a history. was called by admitting team. Patient was prescribed Cipro and Diflucan by Dr. East for a UTI, but reported no improvement in her symptoms. Tmax at home 104. Of note, patient had grown multiple drug resistant urine microorganisms citrobacter, enterococcus, Ecolo, klebsiella, MRSA, pseudomonas and proteus. No recent intrumentation per . Dr. Abdalla put the stent about 3 years ago because patient had fever? per , and was taken out sometime unknown. Non-obstructing calculi. Had tried to broke up but did not get all out. ER Course: Vitals: Tmax 102, tachycardic to 100-110's, BP 133/70, sats 98% RA. Exam: Drowsy, lethargic, warm and flushed appearance, very dry mucous membranes, is arousable but not able to provide appropriate answers, Neck supple, PERRL, Chest b/l clear, Heart S1S2 regular, tachy, Abd: soft, midline large abdominal wall diastases - hernia, lower abdominal tenderness noted, BS+, LE: 1+ edema. Labs: no leukocytosis, H/H 8.9/27.7 (baseline 9-11/28-32), macrocytosis, BUN 41, creat 1.2 (baseline 0.9-1.1), lactic acid 1.8, trop neg. UA cloudy, large LE, RBC> 75, packed WBC, large Hb. Utox neg. Alcohol <10. CXR: cardiomegaly, otherwise clear. CT abd/pelvis: bilateral hydroureteronephrosis with asymmetric fat stranding along right ureter and kidney concerning for ascending infection, multiple intrarenal calculi. Decompressed bladder with perivesicular fat stranding, cholelithiasis, atrophic left kidney, post abdominal wall hernia repair with rectus diastases. EKG: sinus tachycardia, incomplete LBBB. Echo (2015): EF > 75%, mild to mod concentric LVH. Assessment and plan: #Urosepsis w/ complicated UTI #Acute cystitis with pyelonephritis with hematuria #Bilateral hydroureteronephrosis #Previous h/o recurrent UTIs with nephrolithiasis #CKD stage 3A #Previous UC with multi-drug resistant microorganisms #Chronic macrocytic anemia - advance to clear liquid diet for now as mentation had improved. - ID recommended Meropenem IV q8 till culture results. urine culture showed E.Coli sensitive to Cefazolin, Augmentin. Will continue meropenem for a day for ESBL result and then descalate to Augmentin tomorrow. - Urology recommended no active intervention until patient's clinical condition became more stable. Dr. East will be back on for stent placement if needed. Currently, patient's hydronephrosos was likely chronic as no obstructive calculi/stent was in bilateral kidney. - Lactic acid resolved to 1.1 on latest lab. - Creatinine resolved to 1.1 on latest lab. - Strict I/O's - Hold oxybutinin and myrbetriq - Consider addition of flomax - Diabetes management HbA1c 7.1, continued on Novolog SS - Avoid narcotics and sedative meds - Avoid delirium triggers - Check TSH, free T4, folic acid, B12. DVT ppx Hep SC + ALPS Diabetic CC1 Full code. Problem List: 1. Urinary tract infection 2. ARF (acute renal failure) 3. Kidney stones Pain Ratin Pain Location: NA Pain Goal: Remain pain free Pain Plan: NA Tomorrow's Labs & Rationales: CBC/BEP
--- NOTE | 2017-07-20 11:56 | PN- Infect Dx ---
Subjective Subjective: No fever this am. Feeling better. Medley patent/urine cloudy. C/o feeling "oozy". Poor iv access. Review of Systems Comments: 12 points reviewed as noted, otherwise negative. Objective Last 24 Hrs of Vital Signs/I&O Vital Signs Date Time Temp Pulse Resp B/P B/P Pulse O2 O2 Flow FiO2 Mean Ox Delivery Rate 07/20 0647 98.4 86 18 118/66 96 07/19 2315 98.7 07/19 2240 98.7 07/19 2154 100.7 82 19 120/64 96 Room Air 07/19 2143 100.7 07/19 1508 98.0 96 20 142/70 97 Room Air Intake & Output 07/20 1600 07/20 0800 07/20 0000 Intake Total 1120 575 Output Total 760 600 Balance 360 -25 Intake, IV 1000 375 Intake, Oral 120 200 Output, Urine 760 600 Physical Exam Other Physical Findings: General Appearance Alert, oriented, NAD HEENT AT, oral mucosa moist Neck No JVD Cardiovascular Regular Rate, Normal S1, Normal S2, No Murmurs Lungs Clear to Auscultation Abdomen Normal Bowel Sounds, old surgical scars Neurological Strength at 5/5 X4 Ext Extremities b/l mild edema Results Last 24 Hours of Lab Results: Laboratory Tests 07/20 0745 Chemistry Sodium (137 - 145 mmol/L) 145 Potassium (3.5 - 5.1 mmol/L) 4.0 Chloride (98 - 107 mmol/L) 110 H Carbon Dioxide (22 - 30 mmol/L) 24 Anion Gap (5 - 16) 11 BUN (7 - 17 mg/dL) 20 H Creatinine (0.5 - 1.0 mg/dL) 1.0 Estimated GFR (>60 ml/min) 55 L BUN/Creatinine Ratio (7 - 25 %) 20.0 Hematology CBC w Diff NO MAN DIFF REQ WBC (4.8 - 10.8 /CUMM) 6.2 RBC (4.20 - 5.40 /CUMM) 2.40 L Hgb (12.0 - 16.0 G/DL) 8.1 L Hct (37 - 47 %) 24.7 L MCV (81.0 - 99.0 FL) 103.1 H MCH (27.0 - 31.0 PG) 33.7 H RDW (11.5 - 14.5 %) 16.1 H Plt Count (130 - 400 /CUMM) 262 MPV (7.4 - 10.4 FL) 9.1 Gran % (42.2 - 75.2 %) 78.6 H Lymphocytes % (20.5 - 51.1 %) 15.0 L Monocytes % (1.7 - 9.3 %) 5.2 Eosinophils % (0 - 5 %) 0.9 Basophils % (0.0 - 2.0 %) 0.3 Absolute Granulocytes (1.4 - 6.5 /CUMM) 4.8 Absolute Lymphocytes (1.2 - 3.4 /CUMM) 0.9 L Absolute Monocytes (0.10 - 0.60 /CUMM) 0.3 Absolute Eosinophils (0.0 - 0.7 /CUMM) 0.1 Absolute Basophils (0.0 - 0.2 /CUMM) 0 PUBS MCHC (33.0 - 37.0 G/DL) 32.7 L Last 24 Hours of Rogelio Results: SPEC #: [id number] KERRY: 07/18/17 STATUS: COMP RECD: 07/18/[address]: Isaiah CUI, Richy Lopez SOURCE: URINE ROUT ENTR: 07/18/[address]: Norberto CUI,Maurisio Grady SPDESC: URIN CLEAN ORDERED: URINE CULTURE COMMENT: TRIO Procedure Result > URINE CULTURE Final 07/20/17-1000 Greater than 100,000 colonies per ml of: ESCHERICHIA COLI 1. ESCHERICHIA COLI RX AB ------ -- AMPICILLIN R CEFAZOLIN S AMOXICILLIN/CLAVULINIC ACID S AMPICILLIN/SULBACTAM S CIPROFLOXACIN R GENTAMICIN S NITROFURANTOIN I TRIMETHOPRIM/SULFAMETHOXAZOLE R Note: Infectious Diseases Society of [place] Guidelines state that asymptomatic bacteriuria is not associated with any increase in morbidity or mortality in most patients and therefore treatment is usually not indicated unless patients are less than five years old, or about to undergo urological procedures. Recent Imaging Studies: CT A/P IMPRESSION: 1. Bilateral hydroureteronephrosis with asymmetric fat stranding along the course of the right ureter and around the right kidney concerning for ascending infection in the setting of fever and altered mental status. Obstructive calculi are not identified though the ureterovesicular junctions cannot be evaluated due to streak artifact from hip arthroplasty hardware. Multiple sizable intrarenal calculi are unchanged from prior. 2. Decompressed bladder with perivesicular fat stranding in keeping with with probable urinary system infection. 3. Prominent portacaval lymph nodes, likely reactive. 4. Cholelithiasis without acute cholecystitis. 5. Scattered punctate splenic hypodensities, similar to prior, possibly related to granulomatous disease. 6. Redemonstrated atrophic appearance of the left kidney. 7. Post abdominal wall hernia repair with rectus diastases. Streak artifact limits evaluation for recurrent hernia. DICTATED BY: Quan Cruz MD DATE/TIME DICTATED:07/19/17434 HEEL SEAT TRIMMER:TIFFANY DATE/TIME TRANSCRIBED:07/19/17434 Assessment/Plan Impression: 66-year-old female with multiple medical problems including gout, OA, DM2, HLD, colorectal cancer s/p R hemicolectomy, bilateral renal calculi status post stenting admitted 07/18/17. Complicated UTI (E.coli MDR not reported as ESBL producing organism; sensitive cefazolin and gentamicin); CT A/P revealing b/l hydroureteronephrosis with asymmetric fat stranding along the course of the right ureter and around the right kidney concerning for ascending infection [] multiple sizable intrarenal calculi are unchanged from prior. Fever/resolved History of recurrent UTI's (Citrobacter freundii most recently 06/05 R Cefoxitin ; amp C producing beta lactamase organism resistant to most beta lactam antibiotics) Suggestion: 1. Currently treated w/ Meropenem 1 gm q 8 h; follow with micro lab if this E.coli strain is an ESBL producing organism; and if is not can descalate antibiotics. 2. D/c Medley cath. 3. Monitor CBC, BMP. 4. F/u urology recom
[2017-07-20 15:17] VITALS: BP 132/72
--- NOTE | 2017-07-20 18:54 | Patient Discharge Instructions ---
Discharge Instructions General Discharge Information You were seen/treated for: #Urosepsis w/ complicated UTI #Acute cystitis with pyelonephritis with hematuria #Bilateral hydroureteronephrosis #Previous h/o recurrent UTIs with nephrolithiasis #CKD stage 3A #Previous UC with multi-drug resistant microorganisms #Chronic macrocytic anemia Special Instructions: - Please follow up with your urologist for further evaluation of your kidney stone. - Please follow up with your primary care physician within 1-2 week of discharge. Inform your primary care physician of this admission to [facility]. - Continue your current medications per discharge instructions. - Please watch for these problems: Fever, Chills, Nausea, Vomiting, Shortness of Breath, Productive Cough, Chest Pain/Discomfort, Abdominal Pain, Active Bleeding or Bloody urine/stool. Diet Continue normal diet: Yes Recommended Diet: Diabetic Activity Full Activity/No Limits: Yes Acute Coronary Syndrome Inclusion Criteria At DC or during hospital stay patient has or had the following: ACS DIAGNOSIS No Discharge Core Measures Meds if any: Prescribed or Continued at Discharge Meds if any: NOT Prescribed or Continued at Discharge Congestive Heart Failure Inclusion Criteria At DC or during hospital stay patient has or had the following: CHF DIAGNOSIS No Discharge Core Measures Meds if any: Prescribed or Continued at Discharge Meds if any: NOT Prescribed or Continued at Discharge Cerebrovascular accident Inclusion Criteria At DC or during hospital stay patient has or had the following: CVA/TIA Diagnosis No Discharge Core Measures Meds if any: Prescribed or Continued at Discharge Meds if any: NOT Prescribed or Continued at Discharge Venous thromboembolism Inclusion Criteria VTE Diagnosis No VTE Type NONE VTE Confirmed by (Test) NONE Discharge Core Measures - Per Current guidelines, there needs to be overlap - treatment for the first 5 days of Warfarin therapy. - If discharged on Warfarin prior to 5 days of - overlap therapy, the patient will need to be - assessed for post discharge needs including - *Post discharge parental anticoagulation - *Warfarin and/or parental anticoagulation education - *Follow up date to check INR post discharge At least 5 days overlap therapy as Inpatient No Meds if any: Prescribed or Continued at Discharge Note: Overlap Therapy is Warfarin and Anticoagulant Meds if any: NOT Prescribed or Continued at Discharge
--- NOTE | 2017-07-20 19:10 | Discharge Summary ---
Visit Information Visit Dates Admission Date: 07/18/17 Discharge Date: 07/22/17 Hospital Course Course Attending Physician: Javier CUI,Quita Primary Care Physician: Norberto CUI,Maurisio Grady Hospital Course: Ms. Lawson is a 66 yo F with h/o recurrent UTI's, nephrolithiasis, urinary incontinence, with chronic urinary frequency and urgency, T2DM, CKD, HTN, depression, fibromyalgia, colon cancer, last admitted to [facility] (Aug 2016) for sepsis/ pseudomonas UTI, was brought in by for weakness, shaking chills, fever and confusion for the past 2 days. Patient remained confused and was unable to provide a history. was called by admitting team. Patient was prescribed Cipro and Diflucan by Dr. East for a UTI, but reported no improvement in her symptoms. Tmax at home 104. Of note, patient had grown multiple drug resistant urine microorganisms citrobacter, enterococcus, Ecolo, klebsiella, MRSA, pseudomonas and proteus. No recent intrumentation per . Dr. Abdalla put the stent about 3 years ago because patient had fever? per , and was taken out sometime unknown. Non-obstructing calculi. Had tried to broke up but did not get all out. ER Course: Vitals: Tmax 102, tachycardic to 100-110's, BP 133/70, sats 98% RA. Exam: Drowsy, lethargic, warm and flushed appearance, very dry mucous membranes, is arousable but not able to provide appropriate answers, Neck supple, PERRL, Chest b/l clear, Heart S1S2 regular, tachy, Abd: soft, midline large abdominal wall diastases - hernia, lower abdominal tenderness noted, BS+, LE: 1+ edema. Labs: no leukocytosis, H/H 8.9/27.7 (baseline 9-11/28-32), macrocytosis, BUN 41, creat 1.2 (baseline 0.9-1.1), lactic acid 1.8, trop neg. UA cloudy, large LE, RBC> 75, packed WBC, large Hb. Utox neg. Alcohol <10. CXR: cardiomegaly, otherwise clear. CT abd/pelvis: bilateral hydroureteronephrosis with asymmetric fat stranding along right ureter and kidney concerning for ascending infection, multiple intrarenal calculi. Decompressed bladder with perivesicular fat stranding, cholelithiasis, atrophic left kidney, post abdominal wall hernia repair with rectus diastases. EKG: sinus tachycardia, incomplete LBBB. Echo (2015): EF > 75%, mild to mod concentric LVH. Problem list & Hospital course #Urosepsis/Acute cystitis Upon admission, patient had fever of Tmax 102, no leukocytosis, shaking chills and confusion. Patient was started on Ceftazidime and also given one dose of vancomycin for broad spectrum coverage baselind on patient's history of multi- drug resistant UTI. Patient was switched to Meropenem on hospital day 2 per ID reommendation, and later urine culture grew E.Coli. Patient was switched to cefazolin per culture results, and discharged with take home Keflex complete a full 14 days of treatment course. Upon admission, patient was kept NPO due to altered mental status however later advanced the diet to diabetic diet without intolerance as mental status improved. #Bilateral hydroureteronephrosis & Previous h/o recurrent UTIs with nephrolithiasis Upon admission, patient's imaging showed non-obstructive calculi without stent, and bilateral hydronephrosis, likely chronic rather than acute onset. Patient was placed with Medley upon admission due to altered mental status, and urine collection over the first 3 days had been adequate without visible hematuria. Urologist consult recommended outpatient follow up for possible procedure as needed. #Elevated creatinine Upon admission, patient's creatinine was 1.2, and with gentle hydration, trended down to 1.0 on latest lab prior discharge. #Chronic macrocytic anemia Patients MCV remained >100 during hospital stay. Patient's B12/Folate were not depleted on lab, and had normal TSH. ??? #Chronic medical conditions including Diabetes/HLD/depression/fibromyalgia Patient was placed on novolog SS and diabetic diet. patient was continued on home medications including Lipitor, Amitriptyline, Gabapentin, Levothyroxine. DVT ppx Heparin SC + ALPS Diabetic CC1 Full code. Allergies: Coded Allergies: Penicillins (Intermediate, HIVE 06/01/17) Iodinated Contrast- Oral and IV Dye (IODINATED CONTRAST MEDIA - IV DYE) (RASH ) Uncoded Allergies: COBAN (Intermediate, RASH 10/20/16) MAURICIO (Intermediate, HIVES 06/01/17) Pertinent Lab Results: SERVICE DATE: 07/18/17 EXAM TYPE: RAD - XRY-PORTABLE CHEST XRAY IMPRESSION: Cardiomegaly. No gross bony abnormality seen. The soft tissues are normal. SERVICE DATE: 07/19/17 EXAM TYPE: CAT - CT ABD & PELVIS W/O IV CONTRAS IMPRESSION: 1. Bilateral hydroureteronephrosis with asymmetric fat stranding along the course of the right ureter and around the right kidney concerning for ascending infection in the setting of fever and altered mental status. Obstructive calculi are not identified though the ureterovesicular junctions cannot be evaluated due to streak artifact from hip arthroplasty hardware. Multiple sizable intrarenal calculi are unchanged from prior. 2. Decompressed bladder with perivesicular fat stranding in keeping with with probable urinary system infection. 3. Prominent portacaval lymph nodes, likely reactive. 4. Cholelithiasis without acute cholecystitis. 5. Scattered punctate splenic hypodensities, similar to prior, possibly related to granulomatous disease. 6. Redemonstrated atrophic appearance of the left kidney. 7. Post abdominal wall hernia repair with rectus diastases. Streak artifact limits evaluation for recurrent hernia. Disposition Summary Disposition Principal Diagnosis: #Urosepsis w/ complicated UTI #Acute cystitis with pyelonephritis with hematuria #Bilateral hydroureteronephrosis #Previous h/o recurrent UTIs with nephrolithiasis #CKD stage 3A #Previous UC with multi-drug resistant microorganisms #Chronic macrocytic anemia Additional Diagnosis: As above Discharge Disposition: home or self care Discharge Instructions General Discharge Information Code Status: Full Code Patient's Diet: Diabetic Consistent Carbohydrate 1 Patient's Activity: As tolerated Follow-Up Instructions/Appts: - Please follow up with your urologist for further evaluation of your kidney stone. - Please follow up with your primary care physician within 1-2 week of discharge. Inform your primary care physician of this admission to . - Continue your current medications per discharge instructions. - Please watch for these problems: Fever, Chills, Nausea, Vomiting, Shortness of Breath, Productive Cough, Chest Pain/Discomfort, Abdominal Pain, Active Bleeding or Bloody urine/stool. Medications at Discharge Discharge Medications: Stop taking the following medications: Ciprofloxacin HCl (Cipro) 500 MG TABLET ORAL TWICE DAILY Qty = 14 Fluconazole (Diflucan) 150 MG TABLET ORAL GIVE ONCE Qty = 1 Continue taking these medications: Melatonin (Melatonin) 3 MG TABLET 1 Tablet ORAL Every night Simvastatin (Zocor*) 40 MG TABLET 1 Tablet ORAL Every night Gabapentin (Neurontin) 300 MG CAPSULE 2 Capsule ORAL TWICE DAILY Hydrocodone/Acetaminophen (Hydrocodon-Acetaminophen 5-325) 5 MG-325 MG TABLET 1 Tablet ORAL 2 x Daily as needed as needed for PAIN Levothyroxine Sodium (Levothyroxine Sodium) 125 MCG TABLET 1 Tablet ORAL DAILY BEFORE BREAKFAST Furosemide (Furosemide) 40 MG TABLET 1 Tablet ORAL TWICE DAILY Duloxetine HCl (Duloxetine HCl) 60 MG CAPSULE.DR 1 Capsule ORAL DAILY Comments: NOT GIVEN Metformin HCl (Metformin HCl) 1,000 MG TABLET 1 Tablet ORAL TWICE DAILY Qty = 180 Docusate Sodium (Colace) 100 MG CAPSULE 1 Capsule ORAL TWICE DAILY Qty = 60 Comments: NOT GIVEN Allopurinol (Allopurinol) 300 MG TABLET 1 Tablet ORAL DAILY Qty = 90 Comments: NOT GIVEN Gabapentin (Gabapentin) 300 MG CAPSULE 1 Capsule ORAL 1200 Amitriptyline HCl (Amitriptyline HCl) 75 MG TABLET 1 Tablet ORAL Every night Qty = 90 Comments: Last Taken:07/21/17 Time:9:29 PM Cyanocobalamin (Vitamin B-12) 1,000 MCG TABLET 1 Tablet ORAL DAILY Comments: NOT GIVEN Cholecalciferol (Vitamin D3) 1,000 UNIT TABLET 1 Tablet ORAL DAILY Comments: NOT GIVEN Oxybutynin Chloride (Oxybutynin Chloride ER) 15 MG TAB.ER.24 1 Tablet ORAL As Directed as needed for BLADDER Qty = 30 Start taking the following new medications: Cephalexin (Keflex) 500 MG CAPSULE 1 Capsule ORAL THREE TIMES DAILY Qty = 30 No Refills Instructions: . Comments: . Copies To: Norberto CUI,Maurisio Grady
[2017-07-20 22:55] VITALS: BP 140/76
[2017-07-21 07:09] VITALS: BP 142/82
--- NOTE | 2017-07-21 07:31 | Cons- Urology ---
General Information and HPI Consulting Request Date of Consult: 07/21/17 Requested By: Javier CUI,Teresodaniela Reason for Consult: UTI and bilateral hydronephrosis Source of Information: patient, old records Exam Limitations: no limitations History of Present Illness: This patient is known to our practice. She is a 66 year old female with multiple medical issues. She has a hx of recurrent UTI's with different organisms. She also has a hx of bilateral lower pole renal stones. She was admitted with fever, chills and alterted mental status. Urine culture showed MDR E. coli. She was started on Meropenum and has improved. CT scan shows bilateral lower pole renal calculi unchanged from previous imaging. She also has bilateral mild hydro-ureteronephrosis with perinephric and periureteral stranding. No ureteral calculi are identified but distal ureters are suboptimally evaluated due to artifact from hip prostheses. Allergies/Medications Allergies: Coded Allergies: Penicillins (Intermediate, HIVE 06/01/17) Iodinated Contrast- Oral and IV Dye (IODINATED CONTRAST MEDIA - IV DYE) (RASH ) Uncoded Allergies: COBAN (Intermediate, RASH 10/20/16) MAURICIO (Intermediate, HIVES 06/01/17) Home Med List: Allopurinol 300 MG TABLET 1 TAB PO DAILY GOUT (Reported) Amitriptyline HCl 75 MG TABLET 1 TAB PO QPM UNKNOWN (Reported) Cholecalciferol (Vitamin D3) 1,000 UNIT TABLET 1 TAB PO DAILY VITAMIN SUPPORT (Reported) Ciprofloxacin HCl (Cipro) 500 MG TABLET 1 TAB PO BID INFECTION Cyanocobalamin (Vitamin B-12) 1,000 MCG TABLET 1 TAB PO DAILY VITAMIN SUPPORT (Reported) Docusate Sodium (Colace) 100 MG CAPSULE 1 CAP PO BID CONSTIPATION Duloxetine HCl 60 MG CAPSULE.DR 1 CAP PO DAILY FIBROMYALGIA (Reported) Fluconazole (Diflucan) 150 MG TABLET 1 TAB PO ONCE YEAST Furosemide 40 MG TABLET 1 TAB PO BID EDEMA (Reported) Gabapentin (Neurontin) 300 MG CAPSULE 2 CAP PO BID PAIN (Reported) Gabapentin 300 MG CAPSULE 1 CAP PO 1200 PAIN (Reported) Hydrocodone/Acetaminophen (Hydrocodon-Acetaminophen 5-325) 5 MG-325 MG TABLET 1 TAB PO BIDP PRN PAIN (Reported) Levothyroxine Sodium 125 MCG TABLET 1 TAB PO DAILY AC THYROID (Reported) Melatonin 3 MG TABLET 1 TAB PO QPM SLEEP (Reported) Metformin HCl 1,000 MG TABLET 1 TAB PO BID DM (Reported) Oxybutynin Chloride (Oxybutynin Chloride ER) 15 MG TAB.ER.24 1 TAB PO AD PRN BLADDER (Reported) Simvastatin (Zocor*) 40 MG TABLET 1 TAB PO QPM CHOLESTEROL (Reported) Current Medications: Current Medications Sig/Elizabeth Start time Last Medication Dose Route Stop Time Status Admin Acetaminophen 650 MG Q8 07/19 0600 AC 07/21 PO 0620 Acetaminophen 1,000 MG BID PRN 07/19 0115 DC 07/19 N/A 1 UNIT IV 07/20 2214 2143 Amitriptyline HCl 75 MG AT BEDTIME 07/19 2200 AC 07/20 PO 2129 Atorvastatin Calcium 40 MG 1700 07/19 1700 AC 07/20 PO 1625 Gabapentin 300 MG BID 07/19 1000 AC 07/20 PO 2128 Heparin Sodium 5,000 UNIT Q8 07/20 1400 AC 07/21 (Porcine) SC 0621 Insulin Aspart 0 TIDAC 07/19 0800 AC SC Levothyroxine Sodium 0.125 MG DAILY AC 07/19 0700 AC 07/21 PO 0620 Meropenem 1 GM Q8H 07/20 2230 AC 07/21 IV 0621 Meropenem 1 GM IQ8 07/19 1600 DC 07/20 IV 1427 Sodium Chloride 1,000 ML Q8H 07/19 0030 AC 07/21 IV 0106 Past History Medical History Blood Transfusion Hx: No Neurological: NONE EENT: NONE Cardiovascular: hypertension, hyperlipidemia Respiratory: NONE Gastrointestinal: GERD, colorectal cancer s/p R hemicolectomy, multiple abdominal hernias s/p repair (8x), SBO secondary to adhesions, gastric outlet obstruction, GI bleed, hemorrhoids GASTRIC OUTLET OBSTRUCTIO Hepatic: NONE Renal: nephrolithiasis, bladder tumor s/p resection Musculoskeletal: fibromyalgia, gout, osteoarthritis, osteoporosis Psychiatric: NONE Endocrine: diabetes, hyperparathyroidism, hypothyroidism, obesity, W/ RESECTION Blood Disorders: NONE Cancer(s): basal cell carcinoma, melanoma RESEARCH ANALYST/Reproductive: NONE Other Medical Hx: Fibromyalgia Surgical History Pertinent Surgical History: colon resection (right hemicolectomy 13 yrs card placer), hernia repair-ventral, hip replacement, renal stent s/p TURBT 2 yrs [employer] s/p parathyroidectomy Family History Relations & Conditions If Any: MOTHER FH: breast cancer FH: thyroid cancer BROTHER FH: colon cancer SISTER FH: breast cancer FH: diabetes mellitus FH: HTN (hypertension) FH: thyroid cancer Relation not specified for: FH: brain cancer Psychosocial History Where Do You Live? Home Who Do You Live With? spouse Services at Home: None Primary Language: Thai Smoking Status: Never Smoked Functional Ability ADLs Independent: bathing. Needs Assist: dressing. Ambulation: independent IADLs Independent: shopping, housework, finances, food prep, telephone, transportation , medication admin. Exam & Diagnostic Data Vital Signs and I&O Vital Signs Date Time Temp Pulse Resp B/P B/P Pulse O2 O2 Flow FiO2 Mean Ox Delivery Rate 07/21 0709 87 20 142/82 95 07/20 2255 98.7 91 20 140/76 99 Room Air 07/20 1517 100.0 110 18 132/72 96 Intake & Output 07/21 0800 07/21 0000 07/20 1600 07/20 0800 07/20 0000 07/19 1600 Intake Total 1000 0549 590 0464 575 1220 Output Total 675 1050 1250 760 600 950 Balance 325 190 -410 360 -25 270 Intake, IV 1000 1000 1000 375 500 Intake, Oral 240 840 120 200 720 Number 3 0 Bowel Movements Output, Urine 675 1050 1250 760 600 950 No acute distress Back: No CVA tenderness Abd: Large abd wall hernia. No tenderness Laboratory Tests 07/20 0745 Chemistry Sodium (137 - 145 mmol/L) 145 Potassium (3.5 - 5.1 mmol/L) 4.0 Chloride (98 - 107 mmol/L) 110 H Carbon Dioxide (22 - 30 mmol/L) 24 Anion Gap (5 - 16) 11 BUN (7 - 17 mg/dL) 20 H Creatinine (0.5 - 1.0 mg/dL) 1.0 Estimated GFR (>60 ml/min) 55 L BUN/Creatinine Ratio (7 - 25 %) 20.0 Hematology CBC w Diff NO MAN DIFF REQ WBC (4.8 - 10.8 /CUMM) 6.2 RBC (4.20 - 5.40 /CUMM) 2.40 L Hgb (12.0 - 16.0 G/DL) 8.1 L Hct (37 - 47 %) 24.7 L MCV (81.0 - 99.0 FL) 103.1 H MCH (27.0 - 31.0 PG) 33.7 H RDW (11.5 - 14.5 %) 16.1 H Plt Count (130 - 400 /CUMM) 262 MPV (7.4 - 10.4 FL) 9.1 Gran % (42.2 - 75.2 %) 78.6 H Lymphocytes % (20.5 - 51.1 %) 15.0 L Monocytes % (1.7 - 9.3 %) 5.2 Eosinophils % (0 - 5 %) 0.9 Basophils % (0.0 - 2.0 %) 0.3 Absolute Granulocytes (1.4 - 6.5 /CUMM) 4.8 Absolute Lymphocytes (1.2 - 3.4 /CUMM) 0.9 L Absolute Monocytes (0.10 - 0.60 /CUMM) 0.3 Absolute Eosinophils (0.0 - 0.7 /CUMM) 0.1 Absolute Basophils (0.0 - 0.2 /CUMM) 0 PUBS MCHC (33.0 - 37.0 G/DL) 32.7 L Assessment/Plan Assessment/Plan Imp: 1. UTI 2. Recurrent UTI with different organisms 3. Bilateral hydro-ureteronephrosis likely due to infection. She has had temporary hydro in the past due to infection 4. Bilateral lower pole renal stones, unchanged Plan: 1. Abx per ID 2. Will manage stones conservatively at this point as stones in this location do not respond well to ESWL and are difficult to reach ureteroscopically 3. Will need office f/u after discharge for repeat renal imaging Consult Acknowledgment - Thank you for your consult request.
--- NOTE | 2017-07-21 08:45 | PN- Housestaff ---
EbenezerYanira Nikhil Rojasie 07/21/17 0844: Subjective Follow-up For: Sepsis of urologic origin complicated UTI w/ Ecoli Acute cystitis with pyelonephritis with hematuria Bilateral hydroureteronephrosis Previous h/o recurrent UTIs with nephrolithiasis CKD stage 3A Previous UC with multi-drug resistant microorganisms Chronic macrocytic anemia Subjective: Patient was sitting and drinking water when I entered. Patient felt much improved and acknowledged that her urologist came and discussed about outpatient plan of caring for her kidney stone. Review of Systems Constitutional: Reports: see HPI. Objective Last 24 Hrs of Vital Signs/I&O Vital Signs Date Time Temp Pulse Resp B/P B/P Pulse O2 O2 Flow FiO2 Mean Ox Delivery Rate 07/21 0709 87 20 142/82 95 07/20 2255 98.7 91 20 140/76 99 Room Air 07/20 1517 100.0 110 18 132/72 96 Intake & Output 07/21 1600 07/21 0800 07/21 0000 Intake Total 1000 1240 Output Total 675 1400 Balance 325 -160 Intake, IV 1000 1000 Intake, Oral 240 Number 3 Bowel Movements Output, Urine 675 1400 Physical Exam General Appearance: Alert, Oriented X3, Cooperative, No Acute Distress Cardiovascular: Regular Rate Lungs: Clear to Auscultation, Normal Air Movement Abdomen: Normal Bowel Sounds, Soft, No Tenderness Neurological: Normal Speech Current Medications: Current Medications Sig/Elizabeth Start time Last Medication Dose Route Stop Time Status Admin Acetaminophen 650 MG Q8 07/19 0600 AC 07/21 PO 0620 Acetaminophen 1,000 MG BID PRN 07/19 0115 DC 07/19 N/A 1 UNIT IV 07/20 2214 2143 Amitriptyline HCl 75 MG AT BEDTIME 07/19 2200 AC 07/20 PO 2129 Atorvastatin Calcium 40 MG 1700 07/19 1700 AC 07/20 PO 1625 Gabapentin 300 MG BID 07/19 1000 AC 07/21 PO 0857 Heparin Sodium 5,000 UNIT Q8 07/20 1400 AC 07/21 (Porcine) SC 0621 Insulin Aspart 0 TIDAC 07/19 0800 AC SC Levothyroxine Sodium 0.125 MG DAILY AC 07/19 0700 AC 07/21 PO 0620 Meropenem 1 GM Q8H 07/20 2230 AC 07/21 IV 0621 Meropenem 1 GM IQ8 07/19 1600 DC 07/20 IV 1427 Sodium Chloride 1,000 ML Q8H 07/19 0030 AC 07/21 IV 0900 Last 24 Hrs of Lab/Rogelio Results Last 24 Hrs of Labs/Mics: Laboratory Tests 07/21/17 0900: Anion Gap 12, Estimated GFR 55 L, BUN/Creatinine Ratio 20.0, CBC w Diff NO MAN DIFF REQ, RBC 2.63 L, MCV 102.9 H, MCH 33.3 H, RDW 15.6 H, MPV 8.6, Gran % 67.4, Lymphocytes % 21.4, Monocytes % 7.0, Eosinophils % 3.8, Basophils % 0.4, Absolute Granulocytes 3.8, Absolute Lymphocytes 1.2, Absolute Monocytes 0.4, Absolute Eosinophils 0.2, Absolute Basophils 0, PUBS MCHC 32.4 L Assessment/Plan Assessment: Ms. Lawson is a 66 yo F with h/o recurrent UTI's, nephrolithiasis, urinary incontinence, with chronic urinary frequency and urgency, T2DM, CKD, HTN, depression, fibromyalgia, colon cancer, last admitted to [place] (Aug 2016) for sepsis/ pseudomonas UTI, was brought in by for weakness, shaking chills, fever and confusion for the past 2 days. Patient remained confused and was unable to provide a history. was called by admitting team. Patient was prescribed Cipro and Diflucan by Dr. East for a UTI, but reported no improvement in her symptoms. Tmax at home 104. Of note, patient had grown multiple drug resistant urine microorganisms citrobacter, enterococcus, Ecolo, klebsiella, MRSA, pseudomonas and proteus. No recent intrumentation per . Dr. Abdalla put the stent about 3 years ago because patient had fever? per , and was taken out sometime unknown. Non-obstructing calculi. Had tried to broke up but did not get all out. ER Course: Vitals: Tmax 102, tachycardic to 100-110's, BP 133/70, sats 98% RA. Exam: Drowsy, lethargic, warm and flushed appearance, very dry mucous membranes, is arousable but not able to provide appropriate answers, Neck supple, PERRL, Chest b/l clear, Heart S1S2 regular, tachy, Abd: soft, midline large abdominal wall diastases - hernia, lower abdominal tenderness noted, BS+, LE: 1+ edema. Labs: no leukocytosis, H/H 8.9/27.7 (baseline 9-11/28-32), macrocytosis, BUN 41, creat 1.2 (baseline 0.9-1.1), lactic acid 1.8, trop neg. UA cloudy, large LE, RBC> 75, packed WBC, large Hb. Utox neg. Alcohol <10. CXR: cardiomegaly, otherwise clear. CT abd/pelvis: bilateral hydroureteronephrosis with asymmetric fat stranding along right ureter and kidney concerning for ascending infection, multiple intrarenal calculi. Decompressed bladder with perivesicular fat stranding, cholelithiasis, atrophic left kidney, post abdominal wall hernia repair with rectus diastases. EKG: sinus tachycardia, incomplete LBBB. Echo (2014): EF > 75%, mild to mod concentric LVH. Assessment and plan: #Urosepsis w/ complicated UTI #Acute cystitis with pyelonephritis with hematuria #Bilateral hydroureteronephrosis #Previous h/o recurrent UTIs with nephrolithiasis #CKD stage 3A #Previous UC with multi-drug resistant microorganisms #Chronic macrocytic anemia - advance to clear liquid diet for now as mentation had improved. - ID recommended Meropenem IV q8 till culture results. urine culture showed E.Coli sensitive to Cefazolin, Augmentin. Will continue meropenem for a day for ESBL result and then descalate per ID consult today - Urology recommended outpatient f/u for patient's kidney stone - Lactic acid resolved to 1.1 on latest lab. - Creatinine resolved to 1.1 on latest lab. - Strict I/O's - Hold oxybutinin and myrbetriq - Diabetes management HbA1c 7.1, continued on Novolog SS - Avoid narcotics and sedative meds - Avoid delirium triggers - TSH, B12 WNL, Folic >20 DVT ppx Hep SC + ALPS Diabetic CC1 Full code. Problem List: 1. Urinary tract infection 2. Kidney stones Pain Ratin Pain Location: NA Pain Goal: Remain pain free Pain Plan: NA Tomorrow's Labs & Rationales: CBC/BEP MelindaHair hodge 07/21/17 1435: Attending Review Statement Attending Statement Attending MD Statement: examined this patient, discuss w/resident/PA/PONY RIDE ATTENDANT, agreed w/resident/PA/PONY RIDE ATTENDANT, discussed with family, reviewed EMR data (avail), discussed with nursing, discussed with case mgmt, reviewed images, amended to note Attending Assessment/Plan: Patient seen/examined bedside. Patient denies any new complaints. Pateint had bilateral hydronephrosis and sepsis 2/2 urological origin growing E coli in urine. Patient initally treated with meropenem in consultation with ID and now switched to iv cefazolin. f/u urology for any surgical intervention for b/l lower pole renal stones which are unchanged. She remains risk for recurrent UTI.
[2017-07-21 09:40] LABS: ABSOLUTE BASOPHIL COUNT 0 /CUMM (0.0-0.2); ABSOLUTE EOSINOPHIL COUNT 0.2 /CUMM (0.0-0.7); ABSOLUTE GRANULOCYTE CT 3.8 /CUMM (1.4-6.5); ABSOLUTE LYMPH COUNT 1.2 /CUMM (1.2-3.4); ABSOLUTE MONOCYTE COUNT 0.4 /CUMM (0.10-0.60); BASOPHIL % 0.4 % (0.0-2.0); EOSINOPHIL % 3.8 % (0-5); GRANULOCYTE % 67.4 % (42.2-75.2); HEMATOCRIT 27.1 % (37-47); MEAN CORPUSCULAR HGB 33.3 PG (27.0-31.0); MEAN CORPUSCULAR HGB CONC 32.4 G/DL (33.0-37.0); MEAN CORPUSCULAR VOLUME 102.9 FL (81.0-99.0); MEAN PLATELET VOLUME 8.6 FL (7.4-10.4); PLATELET COUNT 291 /CUMM (130-400); RBC DISTRIBUTION WIDTH 15.6 % (11.5-14.5); RED BLOOD CELL CT 2.63 /CUMM (4.20-5.40); WHITE BLOOD CELL COUNT 5.6 /CUMM (4.8-10.8)
--- NOTE | 2017-07-21 13:14 | PN- Infect Dx ---
Subjective Subjective: MAXIMUM TEMPERATURE 100. She feels well with no complaints Objective Last 24 Hrs of Vital Signs/I&O Vital Signs Date Time Temp Pulse Resp B/P B/P Pulse O2 O2 Flow FiO2 Mean Ox Delivery Rate 07/21 0709 87 20 142/82 95 07/20 2255 98.7 91 20 140/76 99 Room Air 07/20 1517 100.0 110 18 132/72 96 Intake & Output 07/21 1600 07/21 0800 07/21 0000 Intake Total 1000 1240 Output Total 675 1400 Balance 325 -160 Intake, IV 1000 1000 Intake, Oral 240 Number 3 Bowel Movements Output, Urine 675 1400 Physical Exam Other Physical Findings: She appears comfortable in no acute distress Lungs are clear Heart regular rhythm with no murmur Abdomen is soft, nontender with positive bowel sounds Back no CVA tenderness Extremities no cyanosis, clubbing or edema Results Last 24 Hours of Lab Results: Laboratory Tests 07/21 0900 Chemistry Sodium (137 - 145 mmol/L) 147 H Potassium (3.5 - 5.1 mmol/L) 4.0 Chloride (98 - 107 mmol/L) 112 H Carbon Dioxide (22 - 30 mmol/L) 24 Anion Gap (5 - 16) 12 BUN (7 - 17 mg/dL) 20 H Creatinine (0.5 - 1.0 mg/dL) 1.0 Estimated GFR (>60 ml/min) 55 L BUN/Creatinine Ratio (7 - 25 %) 20.0 Hematology CBC w Diff NO MAN DIFF REQ WBC (4.8 - 10.8 /CUMM) 5.6 RBC (4.20 - 5.40 /CUMM) 2.63 L Hgb (12.0 - 16.0 G/DL) 8.8 L Hct (37 - 47 %) 27.1 L MCV (81.0 - 99.0 FL) 102.9 H MCH (27.0 - 31.0 PG) 33.3 H RDW (11.5 - 14.5 %) 15.6 H Plt Count (130 - 400 /CUMM) 291 MPV (7.4 - 10.4 FL) 8.6 Gran % (42.2 - 75.2 %) 67.4 Lymphocytes % (20.5 - 51.1 %) 21.4 Monocytes % (1.7 - 9.3 %) 7.0 Eosinophils % (0 - 5 %) 3.8 Basophils % (0.0 - 2.0 %) 0.4 Absolute Granulocytes (1.4 - 6.5 /CUMM) 3.8 Absolute Lymphocytes (1.2 - 3.4 /CUMM) 1.2 Absolute Monocytes (0.10 - 0.60 /CUMM) 0.4 Absolute Eosinophils (0.0 - 0.7 /CUMM) 0.2 Absolute Basophils (0.0 - 0.2 /CUMM) 0 PUBS MCHC (33.0 - 37.0 G/DL) 32.4 L Last 24 Hours of Rogelio Results: Blood cultures July 18 remain negative Assessment/Plan Impression: Stable with temperatures now normal and white blood cell count remaining normal on Meropenem Day 3 of treatment for presumed sepsis of urologic origin, with her urine culture positive for Escherichia coli in the setting of bilateral hydroureteronephrosis and calculi. Apparently no urologic intervention is planned at this time, but, in the absence of any intervention, she will likely remain at risk for recurrent urinary tract infections. Suggestion: 1. Will discuss further with Urology 2. Discontinue Meropenem 3. Begin Cefazolin 1 g IV every 8 hours
[2017-07-21 14:57] VITALS: BP 140/80
[2017-07-21 21:47] VITALS: BP 128/82
[2017-07-22 05:23] VITALS: BP 126/68
--- NOTE | 2017-07-22 07:54 | PN- Housestaff ---
SolYanira 07/22/17 0751: Subjective Follow-up For: Sepsis of urologic origin complicated UTI w/ Ecoli Acute cystitis with pyelonephritis with hematuria Bilateral hydroureteronephrosis Previous h/o recurrent UTIs with nephrolithiasis CKD stage 3A Previous UC with multi-drug resistant microorganisms Chronic macrocytic anemia Subjective: No overnight event. patient was delighted that her antibiotics had worked well and her symptoms were resolved. patient was c/o no heat overnight, but denied fever/sob/ab pain. Review of Systems Constitutional: Reports: see HPI. Objective Last 24 Hrs of Vital Signs/I&O Vital Signs Date Time Temp Pulse Resp B/P B/P Pulse O2 O2 Flow FiO2 Mean Ox Delivery Rate 07/22 0523 97.1 86 18 126/68 97 Room Air 07/21 2147 97.6 87 19 128/82 95 Room Air 07/21 1457 97.9 88 20 140/80 95 Room Air Intake & Output 07/22 0800 07/22 0000 07/21 1600 Intake Total 1825 1725 Output Total 700 Balance 1125 1725 Intake, IV 875 925 Intake, Oral 950 800 Number 1 0 Bowel Movements Output, Urine 700 Physical Exam General Appearance: Alert, Oriented X3, Cooperative, No Acute Distress Cardiovascular: Regular Rate Lungs: Clear to Auscultation, Normal Air Movement Abdomen: Soft, No Tenderness Neurological: Normal Speech Extremities: No Edema, Normal Pulses Current Medications: Current Medications Sig/Elizabeth Start time Last Medication Dose Route Stop Time Status Admin Acetaminophen 650 MG Q8 07/19 0600 AC 07/22 PO 0603 Amitriptyline HCl 75 MG AT BEDTIME 07/19 2200 AC 07/21 PO 2129 Atorvastatin Calcium 40 MG 1700 07/19 1700 AC 07/21 PO 1704 Cefazolin Sodium 1,000 MG IQ8 07/21 1600 AC 07/22 IV 0017 Gabapentin 300 MG BID 07/19 1000 AC 07/21 PO 2129 Heparin Sodium 5,000 UNIT Q8 07/20 1400 AC 07/22 (Porcine) SC 0602 Insulin Aspart 0 TIDAC 07/19 0800 AC SC Levothyroxine Sodium 0.125 MG DAILY AC 07/19 0700 AC 07/22 PO 0603 Meropenem 1 GM Q8H 07/20 2230 DC 07/21 IV 1330 Sodium Chloride 1,000 ML Q8H 07/19 0030 AC 07/22 IV 0018 Last 24 Hrs of Lab/Rogelio Results Last 24 Hrs of Labs/Mics: Laboratory Tests 07/22/17 0635: Sodium Pending, Potassium Pending, Chloride Pending, Carbon Dioxide Pending, Anion Gap Pending, BUN Pending, Creatinine Pending, BUN/Creatinine Ratio Pending , CBC w Diff Pending, WBC Pending, RBC Pending, Hgb Pending, Hct Pending, MCV Pending, MCH Pending, RDW Pending, Plt Count Pending, MPV Pending, PUBS MCHC Pending 07/21/17 0900: Anion Gap 12, Estimated GFR 55 L, BUN/Creatinine Ratio 20.0, CBC w Diff NO MAN DIFF REQ, RBC 2.63 L, MCV 102.9 H, MCH 33.3 H, RDW 15.6 H, MPV 8.6, Gran % 67.4, Lymphocytes % 21.4, Monocytes % 7.0, Eosinophils % 3.8, Basophils % 0.4, Absolute Granulocytes 3.8, Absolute Lymphocytes 1.2, Absolute Monocytes 0.4, Absolute Eosinophils 0.2, Absolute Basophils 0, PUBS MCHC 32.4 L Assessment/Plan Assessment: Ms. Lawson is a 66 yo F with h/o recurrent UTI's, nephrolithiasis, urinary incontinence, with chronic urinary frequency and urgency, T2DM, CKD, HTN, depression, fibromyalgia, colon cancer, last admitted to [place] (Aug 2016) for sepsis/ pseudomonas UTI, was brought in by for weakness, shaking chills, fever and confusion for the past 2 days. Patient remained confused and was unable to provide a history. was called by admitting team. Patient was prescribed Cipro and Diflucan by Dr. East for a UTI, but reported no improvement in her symptoms. Tmax at home 104. Of note, patient had grown multiple drug resistant urine microorganisms citrobacter, enterococcus, Ecolo, klebsiella, MRSA, pseudomonas and proteus. No recent intrumentation per . Dr. Abdalla put the stent about 3 years ago because patient had fever? per , and was taken out sometime unknown. Non-obstructing calculi. Had tried to broke up but did not get all out. ER Course: Vitals: Tmax 102, tachycardic to 100-110's, BP 133/70, sats 98% RA. Exam: Drowsy, lethargic, warm and flushed appearance, very dry mucous membranes, is arousable but not able to provide appropriate answers, Neck supple, PERRL, Chest b/l clear, Heart S1S2 regular, tachy, Abd: soft, midline large abdominal wall diastases - hernia, lower abdominal tenderness noted, BS+, LE: 1+ edema. Labs: no leukocytosis, H/H 8.9/27.7 (baseline 9-11/28-32), macrocytosis, BUN 41, creat 1.2 (baseline 0.9-1.1), lactic acid 1.8, trop neg. UA cloudy, large LE, RBC> 75, packed WBC, large Hb. Utox neg. Alcohol <10. CXR: cardiomegaly, otherwise clear. CT abd/pelvis: bilateral hydroureteronephrosis with asymmetric fat stranding along right ureter and kidney concerning for ascending infection, multiple intrarenal calculi. Decompressed bladder with perivesicular fat stranding, cholelithiasis, atrophic left kidney, post abdominal wall hernia repair with rectus diastases. EKG: sinus tachycardia, incomplete LBBB. Echo (2015): EF > 75%, mild to mod concentric LVH. Assessment and plan: #Urosepsis w/ complicated UTI #Acute cystitis with pyelonephritis with hematuria #Bilateral hydroureteronephrosis #Previous h/o recurrent UTIs with nephrolithiasis #CKD stage 3A #Previous UC with multi-drug resistant microorganisms #Chronic macrocytic anemia - advance to diabetic diet - ID recommended DC meropenem and switch to cefazolin. Pending discharge to home today with oral antibiotics. - Urology recommended outpatient f/u for patient's kidney stone - Lactic acid resolved to 1.1 on latest lab. - Creatinine resolved to 1.1 on latest lab. - Strict I/O's - Hold oxybutinin and myrbetriq. - Diabetes management HbA1c 7.1, continued on Novolog SS - Avoid narcotics and sedative meds - Avoid delirium triggers - TSH, B12 WNL, Folic >20 DVT ppx Hep SC + ALPS Diabetic CC1 Full code. Problem List: 1. Urinary tract infection 2. Kidney stones Pain Ratin Pain Location: NA Pain Goal: Remain pain free Pain Plan: NA Tomorrow's Labs & Rationales: ED Hair Lawrence 07/22/17 1120: Attending MD Review Statement Attending Statement Attending MD Statement: examined this patient, discuss w/resident/PA/UMBRELLA TIPPER, agreed w/resident/PA/UMBRELLA TIPPER, discussed with family, reviewed EMR data (avail), discussed with nursing, discussed with case mgmt, reviewed images, amended to note Attending Assessment/Plan: Patient seen/examined bedside. Patient denies any new complaints. Pateint had bilateral hydronephrosis and sepsis 2/2 urological origin growing E coli in urine. Patient initally treated with meropenem in consultation with ID and now switched to iv cefazolin. f/u urology for any surgical intervention for b/l lower pole renal stones which are unchanged. She remains risk for recurrent UTI. Follow up with urology and ID for safe discharge planning.
[2017-07-22 08:30] LABS: HEMATOCRIT 25.1 % (37-47); MEAN CORPUSCULAR HGB 33.4 PG (27.0-31.0); MEAN CORPUSCULAR HGB CONC 32.2 G/DL (33.0-37.0); MEAN CORPUSCULAR VOLUME 103.6 FL (81.0-99.0); MEAN PLATELET VOLUME 9.3 FL (7.4-10.4); PLATELET COUNT 246 /CUMM (130-400); RBC DISTRIBUTION WIDTH 15.8 % (11.5-14.5); RED BLOOD CELL CT 2.43 /CUMM (4.20-5.40); WHITE BLOOD CELL COUNT 8.1 /CUMM (4.8-10.8)
[2017-07-22] MEDS ORDERED: AUGMENTIN 875-1 EACH PO (10:15)
[2017-07-22 14:25] VITALS: BP 130/70
--- NOTE | 2017-07-22 14:41 | PN- Infect Dx ---
Subjective Subjective: Afebrile without complaints Objective Last 24 Hrs of Vital Signs/I&O Vital Signs Date Time Temp Pulse Resp B/P B/P Pulse O2 O2 Flow FiO2 Mean Ox Delivery Rate 07/22 1425 97.4 87 18 130/70 97 Room Air 07/22 0523 97.1 86 18 126/68 97 Room Air 07/21 2147 97.6 87 19 128/82 95 Room Air 07/21 1457 97.9 88 20 140/80 95 Room Air Intake & Output 07/22 1600 07/22 0800 07/22 0000 Intake Total 1240 1825 Output Total 1200 700 Balance 40 1125 Intake, IV 1000 875 Intake, Oral 240 950 Number 1 Bowel Movements Output, Urine 1200 700 Physical Exam Other Physical Findings: She appears comfortable in no acute distress Back no CVA tenderness Results Last 24 Hours of Lab Results: Laboratory Tests 07/22 0635 Chemistry Sodium (137 - 145 mmol/L) 148 H Potassium (3.5 - 5.1 mmol/L) 4.2 Chloride (98 - 107 mmol/L) 118 H Carbon Dioxide (22 - 30 mmol/L) 19 L Anion Gap (5 - 16) 11 BUN (7 - 17 mg/dL) 17 Creatinine (0.5 - 1.0 mg/dL) 0.8 Estimated GFR (>60 ml/min) > 60 BUN/Creatinine Ratio (7 - 25 %) 21.3 Hematology CBC w Diff MAN DIFF ORDERED WBC (4.8 - 10.8 /CUMM) 8.1 RBC (4.20 - 5.40 /CUMM) 2.43 L Hgb (12.0 - 16.0 G/DL) 8.1 L Hct (37 - 47 %) 25.1 L MCV (81.0 - 99.0 FL) 103.6 H MCH (27.0 - 31.0 PG) 33.4 H RDW (11.5 - 14.5 %) 15.8 H Plt Count (130 - 400 /CUMM) 246 MPV (7.4 - 10.4 FL) 9.3 Segmented Neutrophils (42.2 - 75.2 %) 52 Band Neutrophils (0.0 - 5.0 %) 14 H Lymphocytes (20.5 - 51.1 %) 25 Monocytes (1.7 - 9.3 %) 5 Eosinophils (0 - 5.0 %) 4 Platelet Estimate (ADEQUATE) VERIFIED BY SMEAR Anisocytosis 1+ Macrocytic Cells 1+ PUBS MCHC (33.0 - 37.0 G/DL) 32.2 L Last 24 Hours of Rogelio Results: No new cultures Assessment/Plan Impression: Stable with temperatures and white blood cell count remaining normal now on Cefazolin, Day 4 of treatment for presumed sepsis of urologic origin, with her urine culture positive for Escherichia coli in the setting of bilateral hydroureteronephrosis and calculi. Have discussed with Urology, who will plan on ureteroscopic removal of her stones as an outpatient. Suggestion: 1. Discontinue Cefazolin 2. Begin Keflex 500 mg po every 8 hours for 10 days to complete a 14 day course of antibiotics
[2017-07-22] MEDS ORDERED: KEFLEX500 M1 PO ×2 (15:20→15:39)
== END 2017-07-22 16:01 | DRG 872 ==
LOC: ERH 19:01 → ERHI 22:08 → 2NB 22:08 → ENRESERV 22:40 → 2NB 23:52
PROVIDERS: Internal Medicine Endocrinology, Diabetes & Metabolism; Pediatrics
DX: A41.9 Sepsis, unspecified organism (principal); E11.22 Type 2 diabetes mellitus with diabetic chronic kidney disease; N18.3 Chronic kidney disease, stage 3 (moderate); Z68.41 Body mass index [BMI] 40.0-44.9, adult; N12 Tubulo-interstitial nephritis, not specified as acute or chronic; N13.6 Pyonephrosis; N30.01 Acute cystitis with hematuria; E03.9 Hypothyroidism, unspecified; F32.9 Major depressive disorder, single episode, unspecified; M10.9 Gout, unspecified; M79.7 Fibromyalgia; E78.5 Hyperlipidemia, unspecified; E21.3 Hyperparathyroidism, unspecified; K21.9 Gastro-esophageal reflux disease without esophagitis; E66.9 Obesity, unspecified; B96.20 Unspecified Escherichia coli [E. coli] as the cause of diseases classified elsewhere; K80.20 Calculus of gallbladder without cholecystitis without obstruction; I12.9 Hypertensive chronic kidney disease with stage 1 through stage 4 chronic kidney disease, or unspecified chronic kidney disease; Z79.84 Long term (current) use of oral hypoglycemic drugs; Z85.820 Personal history of malignant melanoma of skin; Z85.038 Personal history of other malignant neoplasm of large intestine
CPT/HCPCS: 2NBP; 36415; 74176; 80307; 81001; 82436; 82570; 87040; 87086; 87804; 87804-59; 93005; 93010; 96374; 99291; G0480; J0131; J0690; J0696; J0713; J1644; J2185; J3370; J7060